=== PATIENT | male | born 1930 | race Caucasian/White ===

== ENCOUNTER 2017-07-20 15:43 | Emergency (ER) | payer OTHER ==
[~2017-07-20] VITALS: Ht 180.3 cm; Wt 83.5 kg
[~2017-07-20 15:43] MED LIST: ADULT LOW DOSE81 MG PO; CARVEDILOL12.5 MG PO; CARVEDILOL6.25 MG PO; CENTRUM COMPLE1 EACH PO; CO Q-10100 MG PO; COENZYME Q1050 M1; CRESTOR10 MG PO; CRESTOR5 MG PO; IMDUR 30 MG TAB30 M1 PO; LEVOTHROID75 MCG PO; LISINOPRIL10 MG PO; LISINOPRIL5 MG PO; MULTI VITAMIN1 EACH; MULTIVITAMINS PO; NITROGLYCERIN0.4 MG SL; NITROQUICK0.4 MG SL; OMEPRAZOLE20 MG PO; PLAVIX 75 MG TA75 MG PO; PRILOSEC 20 MG20 MG; PROTONIX40 M2 PO; SM FISH OIL 1,1 EACH PO; thyroxine
[2017-07-20 16:17] LABS: ABSOLUTE BASOPHILS 0.2 thou/uL (0.0-0.2); ABSOLUTE EOSINOPHILS 0.2 thou/uL (0.0-0.7); ABSOLUTE LYMPHOCYTES 0.8 thou/uL (0.8-5.3); ABSOLUTE MONOCYTES 1.1 thou/uL (0.0-1.2); ABSOLUTE NEUTROPHILS 4.6 thou/uL (1.6-8.1); BASOPHILS 2.6 %; EOSINOPHILS 3.1 %; HEMATOCRIT 38.9 % (42.0-52.0); HEMOGLOBIN 13.4 gm/dL (14.0-18.0); LYMPHOCYTES 11.3 %; MCH 31.7 pg (26.0-34.0); MCHC 34.4 g/dL (28.0-37.0); MONOCYTES 16.3 %; MPV 7.5 fl. (7.2-11.1); NUCLEATED RBCS 0 /100WBC; PLATELET COUNT* 136 thou/uL (150-400); POLYS 66.7 %; RBC 4.22 mil/uL (4.50-6.00); RDW-CV 13.2 % (10.5-14.5)
[2017-07-20 16:37] LABS: INFLUENZA A ANTIGEN None Detected (None Detect); INFLUENZA B ANTIGEN None Detected (None Detect)
[2017-07-20 16:41] LABS: ANION GAP 7 mmol/L (7-16); BUN 19 mg/dL (7-18); CALCIUM 8.8 mg/dL (8.5-10.1); CHLORIDE 99 mmol/L (98-107); CO2 30 mmol/L (21-32); CREATININE 1.5 mg/dL (0.6-1.3); GLUCOSE 136 mg/dL (70-99); POTASSIUM 4.3 mmol/L (3.5-5.1); SODIUM 136 mmol/L (136-145)
[2017-07-20 16:46] LABS: ALBUMIN 3.8 g/dL (3.4-5.0); ALKALINE PHOSPHATASE 61 U/L (46-116); SGOT 26 U/L (15-37); SGPT 21 U/L (30-65); TOTAL BILIRUBIN 0.7 mg/dL (<0.1-1.0); TOTAL PROTEIN 6.9 g/dL (6.4-8.2); TROPONIN-I LEVEL <0.06 ng/mL (<0.06)
[2017-07-20] MEDS ORDERED: ZPAK PO (17:37)
[2017-07-20] MEDS ORDERED: ZOFRAN ODT4 MG PO (17:37)
[2017-07-20] MEDS ORDERED: ACETAMINOPHEN-1 EAC1 PO (17:37)
[2017-07-20 17:42] LABS: URINE BILIRUBIN NEGATIVE (Negative); URINE BLOOD NEGATIVE (Negative); URINE CLARITY CLEAR; URINE COLOR DARK YELLOW; URINE GLUCOSE-RANDOM NEGATIVE (Negative); URINE KETONES NEGATIVE (Negative); URINE LEUKOCYTES-REFLEX NEGATIVE (Negative); URINE NITRITE-REFLEX NEGATIVE (Negative); URINE PROTEIN NEGATIVE (Negative); URINE UROBILINOGEN 0.2 E.U./dl (0.2-1.0)
[2017-07-20 17:50] VITALS: BP 123/66
--- NOTE | 2017-07-21 16:27 | EKG ---
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 07/21/17 1626 155 155 Kashmir Bellamy MD, FACC /EPI
== END 2017-07-20 17:51 | disposition home or self-care (01) ==
LOC: M.ERS 15:43
PROVIDERS: Physician Assistant
DX: J20.9 Acute bronchitis, unspecified (principal); I25.119 Atherosclerotic heart disease of native coronary artery with unspecified angina pectoris; I10 Essential (primary) hypertension; Z95.5 Presence of coronary angioplasty implant and graft; Z98.890 Other specified postprocedural states

== ENCOUNTER 2018-02-14 09:55 | Inpatient (IN) | payer OTHER ==
[~2018-02-14] VITALS: Ht 172.7 cm; Wt 85.7 kg
[~2018-02-14 09:55] MED LIST changes: +ACETAMINOPHEN-1 EAC1 PO; +ZOFRAN ODT4 MG PO; +ZPAK PO
[2018-02-14 10:07] VITALS: BP 140/86
[2018-02-14] MEDS ORDERED: ARICEPT 5 MG TAB5 MG PO ×2 (10:12→14:21)
[2018-02-14] MEDS ORDERED: RED YEAST RICE600 MG PO (10:13)
[2018-02-14 10:29] LABS: ABSOLUTE BASOPHILS 0.2 thou/uL (0.0-0.2); ABSOLUTE EOSINOPHILS 0.1 thou/uL (0.0-0.7); ABSOLUTE LYMPHOCYTES 1.1 thou/uL (0.8-5.3); ABSOLUTE MONOCYTES 0.6 thou/uL (0.0-1.2); ABSOLUTE NEUTROPHILS 5.9 thou/uL (1.6-8.1); BASOPHILS 2.6 %; EOSINOPHILS 1.4 %; HEMATOCRIT 42.5 % (42.0-52.0); HEMOGLOBIN 14.7 gm/dL (14.0-18.0); LYMPHOCYTES 14.3 %; MCH 31.6 pg (26.0-34.0); MCHC 34.6 g/dL (28.0-37.0); MCV 91.5 fL (80.0-100.0); MONOCYTES 7.6 %; MPV 7.6 fl. (7.2-11.1); NUCLEATED RBCS 0 /100WBC; PLATELET COUNT* 171 thou/uL (150-400); POLYS 74.1 %; RBC 4.64 mil/uL (4.50-6.00); RDW-CV 13.2 % (10.5-14.5); WBC 7.9 thou/uL (4.0-11.0)
[2018-02-14 10:45] LABS: ANION GAP 5 mmol/L (7-16); BUN 14 mg/dL (7-18); CALCIUM 9.3 mg/dL (8.5-10.1); CHLORIDE 96 mmol/L (98-107); CO2 31 mmol/L (21-32); CREATININE 0.9 mg/dL (0.6-1.3); GLUCOSE 140 mg/dL (70-99); POTASSIUM 4.4 mmol/L (3.5-5.1); SODIUM 132 mmol/L (136-145)
[2018-02-14 10:49] LABS: ALBUMIN 4.2 g/dL (3.4-5.0); ALKALINE PHOSPHATASE 54 U/L (46-116); MAGNESIUM 1.9 mg/dL (1.8-2.4); SGOT 22 U/L (15-37); SGPT 16 U/L (30-65); TOTAL BILIRUBIN 0.7 mg/dL (<0.1-1.0); TOTAL PROTEIN 7.4 g/dL (6.4-8.2); TROPONIN-I LEVEL <0.06 ng/mL (<0.06)
[2018-02-14 12:05] LABS: URINE BILIRUBIN NEGATIVE (Negative); URINE BLOOD NEGATIVE (Negative); URINE CLARITY CLEAR; URINE COLOR YELLOW; URINE GLUCOSE-RANDOM NEGATIVE (Negative); URINE KETONES NEGATIVE (Negative); URINE LEUKOCYTES-REFLEX NEGATIVE (Negative); URINE NITRITE-REFLEX NEGATIVE (Negative); URINE PROTEIN NEGATIVE (Negative); URINE UROBILINOGEN 0.2 E.U./dl (0.2-1.0)
[2018-02-14 12:51] LABS: APTT 25.4 Seconds (25.0-31.3); INR 1.1; PROTIME 10.4 Seconds (9.20-11.50)
[2018-02-14 13:11] VITALS: BP 142/84
[2018-02-14 13:35] VITALS: BP 154/97
[2018-02-14 15:36] VITALS: BP 121/71
--- NOTE | 2018-02-14 16:33 | NUR ---
PT ARRIVED TO ROOM 215 AT APPROX 1330 FROM THE ER. PT ORINETED TO ROOM AND STAFF. PT IS ALERT AND ORIENTED X3, SLOW TO ANSWER QUESTIONS AND IS FORGETFUL. DAUGHTER AT BEDSIDE, HELPING PT ANSWER ADMISSION QUESTIONS. REVIEWED HOME MEDS WITH PT. ADMISSION HX AND ASSESMENT DONE CHARTED. REVIEWED FALL PRECAUTIONS WITH PT, HE NEEDS REENFORCEMENT. WILL CONTINUE WITH PLAN OF CARE.
[2018-02-14 20:00] VITALS: BP 141/75
[2018-02-15] VITALS (16 sets, daily range): BP systolic 115–173; BP diastolic 67–119
[2018-02-15 03:18] LABS: HEMATOCRIT 36.2 % (42.0-52.0); HEMOGLOBIN 12.7 gm/dL (14.0-18.0); MCH 31.8 pg (26.0-34.0); MCV 91.1 fL (80.0-100.0); MPV 7.8 fl. (7.2-11.1); RBC 3.98 mil/uL (4.50-6.00); RDW-CV 13.4 % (10.5-14.5); WBC 9.9 thou/uL (4.0-11.0)
[2018-02-15 03:23] LABS: CALCIUM 8.3 mg/dL (8.5-10.1); CREATININE 0.8 mg/dL (0.6-1.3); MAGNESIUM 1.7 mg/dL (1.8-2.4); POTASSIUM 3.9 mmol/L (3.5-5.1)
--- NOTE | 2018-02-15 05:13 | NUR ---
AT ABOUT 0248 PT BECAME BRADYCARDIA IN THE 30'S AND THEN HAD ABOUT A 30 SECOND EPISODE OF ASYSTOLE. COMPRESSIONS WAS STARTED ON PT. AFTER A FEW SECONDS OF COMPRESSIONS PT HAD A PULSE AND BECAME ALERT. JEROME OCONNELL WAS CALLED BUT NO INTERVENTIONS EXCEPT COMPRESSIONS WHERE DONE. DR VELASQUEZ NOTIFIED AND CARDIOLOGY CONSULT WAS DONE. PT BEING MONITORED AT THIS TIME.,
--- NOTE | 2018-02-15 05:39 | NUR ---
PT RESTING AT THIS TIME, SINUS RHYTHM ON SPORTS MEDICINE COORDINATOR WITH HR 60'S-70'S. DENIES PAIN, FALL PRECAUTIONS IN PLACE. CARDIAC CONSULT FOR AM PENDING.
--- NOTE | 2018-02-15 09:45 | NUR ---
ASSUMED PT CARE AT 0730, FULL ASSESMENT DONE CHARTED. PT A/O X3, FORGETFUL, PLEASANT. DENIES PAIN BUT STATES HE IS"SICK TO MY STOMACH". PT GIVEN ZOFRAN. PT SR ON THE MONITOR. VSS, UP TO BATHROOM WITH ASSISTANCE SEVERAL TIMES THIS AM. NPO FOR CARDIOLOGY CONSULT. FALL PRECAUTIONS IN PLACE. CALL LIGHT IN REACH. PT NEEDS REENFORCEMENT TO CALL FOR HELP. WILL CONTINUE TO MONITOR.
--- NOTE | 2018-02-15 11:52 | NUR ---
PT TAKEN TO SKIDDER RUNNER FOR TEMPORARY PACEMAKER PLACEMENT AT APPROX 1105, FAMILY NOTIFIED, SON ARRIVED AND TAKEN TO ICU WAITING ROOM
--- NOTE | 2018-02-15 12:19 | NUR ---
REPORT GIVEN TO MARCELINO IN ICU
--- NOTE | 2018-02-15 12:25 | EKG ---
[place] [address] ELECTROCARDIOGRAM REPORT Name: KING KAUFFMANBY Ann Room: [address] ADM IN M.R.#: [id number] Admission: 02/14/18 Attend Phys: Ankit Armendariz, Discharge: Date of : 30 Report #: [id number] THIS REPORT FOR: //name// [facility] ED Test Date: 2018-02-14 Test Time: 10:15:52 Pat Name: HUGO KAUFFMAN Department: Room: [facility] Gender: M Core Filer: Melinda REBOLLEDO : 1930 Requested By: Mena Cervantes Order Number: [id number] MD: Neeraj Hernandez Measurements Intervals [place] Rate: 75 P: 64 TN: 210 QRS: -25 QRSD: 95 T: 55 QT: 416 QTc: 465 Interpretive Statements Sinus rhythm Borderline left axis deviation Low voltage, precordial leads Abnormal R-wave progression, early transition Compared to ECG 07/20/2017 15:51:55 no change Electronically Signed On 02-15-2018 12:24:44 CDT by Neeraj Hernandez [email or web address] <ELECTRONICALLY SIGNED> By: Neeraj Hernandez MD, [facility] 02/15/18 1224 1015 1015 Neeraj Hernandez MD, [facility] /EPI
--- NOTE | 2018-02-15 12:37 | EKG ---
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: [facility] : 1930 Requested By: Ankit Armendariz Order Number: [id number] Hesham MD: Neeraj Hernandez Measurements Intervals [place] Rate: 71 P: 43 AK: 222 QRS: -26 QRSD: 90 T: 56 QT: 442 QTc: 481 Interpretive Statements Sinus rhythm Prolonged AK interval Borderline left axis deviation Minimal ST elevation, anterior leads Electronically Signed On 02-15-2018 12:36:59 CDT by Neeraj Hernandez [email or web address] <ELECTRONICALLY SIGNED> By: Neeraj Hernandez MD, [facility] 02/15/18 1236 309 8 Neeraj Hernandez MD, FACC /EPI
--- NOTE | 2018-02-15 12:50 | NUR ---
PT TRANSERRED TO ICU ROOM 7 AROUND 1210 FROM MANAGER BILINGUAL. PT WAS PREVIOUSLY A TELE PATIENT, REPORT RECEIVED FROM TELE NURSE. TEMPORARY PACEMAKER TO RT GROIN. ANTICIPATE PLACEMENT OF PERMANENT PACEMAKER TOMORROW. FAMILY AT BEDSIDE. NO OTHER CONCERNS AT THIS TIME. CLWR. WCTM.
--- NOTE | 2018-02-15 13:05 | CARD ---
[address] [address] CARDIAC CATH REPORT Name: HUGO KAUFFMAN Room: [address] IN .R.#: [id number] Admission: 02/14/18 Attend Phys: Ankit Armendariz, Discharge: Date of : 30 Report #: [id number] THIS REPORT FOR: //name// APPROVED REPORT Study performed: 02/15/2018 10:47:49 Patient Status: In-Patient Room #: 214 Event Personnel: Ita Younger RN Canning Machine Operator, Adina Reeves, Kisha Larsen Blick, David Space Officer Exam: Insertion of Temporary Pacemaker Insertion Indications: Complete Heart Block The patient is a 87 year-old male with a history of Complete Heart Block. Conscious Sedation No sedation given Electrode Parameters Ventricular Threshold: 0.5 ma Complications The patient tolerated the procedure well and there were no complications associated with the procedure. Findings Specimens Removed: No Estimated Blood Loss: 5 6 divehi sheath was placed in the right femoral vein. 5 divehi pacing lead was inserted through the sheath and guided under fluoroscopy to the right ventricular apex. The sheath was sutured in place Conclusion successful placement of a temporary pacing lead Recommendations permanent dual chamber pacemaker <ELECTRONICALLY SIGNED> By: Neeraj Hernandez MD, [facility] 02/15/18 1305 1305 1305Neeraj Hernandez MD, FACC /INF
--- NOTE | 2018-02-15 15:46 | NUR ---
PT PROGRESSING TOWARDS GOALS THIS SHIFT. TEMPORARY PACEMAKER TO RT GROIN ACCESS SITE. PT SOMEWHAT NONCOMPLIANT WITH KEEPING RLE STRAIGHT, RLE SOFT RESTRAINT APPLIED TO REMIND PT. VSS. TELE SR. NO OTHER CONCERNS AT THIS TIME. CLWR. WCTM.
--- NOTE | 2018-02-15 18:16 | NUR ---
PATIENT STATING HE IS SHORT OF AIR. SLIGHTLY MORE TACHYCARDIC WITH RATE 100-110S. O2 SAT REMAINS >90%. TEMPERATURE 97.6. DR MCCANN PAGEGirish, ONETIME DOSE OF 40 MG IV LASIX GIVEN. STAT CHEST XRAY, BEING COMPLETED NOW. DR MATOS PAGEGirish TO BE MADE AWARE, AWAITING CALL BACK.
[2018-02-16] VITALS (12 sets, daily range): BP systolic 82–138; BP diastolic 52–86
[2018-02-16 04:32] LABS: HEMATOCRIT 38.6 % (42.0-52.0); HEMOGLOBIN 13.5 gm/dL (14.0-18.0); MCH 31.6 pg (26.0-34.0); MCV 90.1 fL (80.0-100.0); MPV 7.7 fl. (7.2-11.1); RBC 4.28 mil/uL (4.50-6.00); RDW-CV 13.6 % (10.5-14.5); WBC 12.6 thou/uL (4.0-11.0)
[2018-02-16 04:47] LABS: AMYLASE 24 U/L (25-115); ANION GAP 4 mmol/L (7-16); BUN 10 mg/dL (7-18); CALCIUM 8.5 mg/dL (8.5-10.1); CHLORIDE 96 mmol/L (98-107); CHOLESTEROL 234 mg/dL (<200); CO2 31 mmol/L (21-32); GLUCOSE 136 mg/dL (70-99); HDL CHOLESTEROL 60 mg/dL (>40); LDL CHOLESTEROL 158 mg/dL (<100); LIPASE 46 U/L (73-393); MAGNESIUM 1.6 mg/dL (1.8-2.4); POTASSIUM 3.5 mmol/L (3.5-5.1); SODIUM 131 mmol/L (136-145); TC:HDL 3.9 Ratio (Not establshd); TRIGLYCERIDE 83 mg/dL (<150); VLDL 17 mg/dL (<40)
[2018-02-16 04:56] LABS: SERUM ASSESSMENT CLEAR
--- NOTE | 2018-02-16 05:24 | NUR ---
ASSUMED PT CARE AT 1930, PT IS AWAKE AND ALERT TO SELF, OCCASIONALLY PLACE. PT DENIES ANY PAIN OR NEEDS AT THIS TIME. PT TRACING ST ON THE MONITOR, TEMPORARY PACEMAKER IN PLACE. PT STARTED OUT ON 6L NC AT THE START OF SHIFT. RT HAS WEANED PT DOWN TO 2L NC. PT RIGHT LEG IS RESTRAINED FOR IMMOBILIZATION FOR THE TEMP PACER TO RIGHT GROIN. AROUND 0500 PATIENT BECAME MORE RESTLESS AND HAD PULLED THE BOTTOM HALF OF THE DRESSING COVERING TEMPORARY PACEMAKER SITE. THIS RN REDRESSED SITE. AFTER NEW DRESSING WAS APPLIED PT'S HEART RATE INCREASED. PT WILL JUMP FROM 110'S TO 150'S. DR. MATOS NOTIFIED, STATED TO ADD REENFORCEMENT AND LOCATION TAPE AND HE WILL BE IN TO SEE THE PATIENT THIS AM. BED IN LOW POSITION, CALL LIGHT IN REACH, BED ALARM ON, YELLLOW ARM BAND AND SOCKS IN PLACE.
--- NOTE | 2018-02-16 10:10 | NUR ---
PT TO STRONG NITRIC OPERATOR PER BED AND SURGERY STAFF FOR PACEMAKER PLACEMENT. CONSENT SIGNED BY PT. PT VERBALIZED UNDERSTANDING OF PROCEDURE. DAUGHTER AT BEDSIDE.
--- NOTE | 2018-02-16 13:20 | NUR ---
PT BACK FROM PROMOTIONS SPECIALIST. PACEMAKER PLACED. SURGICAL SITE TO L CHEST C/D/I. NO DRESSING. SLING PLACED TO LUE. CLEAR DRESSING TO R GROIN WHERE TEMP PACEMAKER WAS REMOVED. AREA SOFT TO TOUCH WITH NO HEMATOMA OR BRUISING.
--- NOTE | 2018-02-16 16:00 | NUR ---
SPOKE WITH PT AND DAUGHTER. PT LIVES ALONE, DTR LIVES NEARBY AND CHECKS ON HIM OFTEN. DTR WORKS NIGHTS, SHE HAS TO GO BACK INTO WORK FRIDAY NIGHT. DTR WORRIED ABOUT PT BEING HOME ALONE. SHE SAID HE HAS SOME CONFUSION AT HOME BUT HAS BEEN OKAY TO BE HOME ALONE, HE HAS BEEN SLIGHTLY MORE CONFUSED SINCE HE HAS BEEN HERE IN THE HOSPITAL. WILL SEE HOW PT DOES AFTER HE IS OFF BEDREST FROM HIS PACEMAKER INSERTION THIS AFTERNOON. PT NOW TELE STATUS. CASE MGT WILL FOLLOW UP TOMORROW.
--- NOTE | 2018-02-16 17:00 | CARD ---
[address] [address] CARDIAC CATH REPORT Name: HUGO KAUFFMAN Room: [address] IN [facility]#: [id number] Admission: 02/14/18 Attend Phys: Ankit Armendariz, Discharge: Date of : 30 Report #: [id number] THIS REPORT FOR: //name// APPROVED REPORT Study performed: 02/16/2018 09:38:00 Patient Status: In-Patient Room #: ICU 7 Exam: Insertion of Dual Chamber Permanent Pacemaker Indications: Complete Heart Block The patient is a 87 year-old male with a history of Complete Heart Block. Patient Info Antiplatelet Therapy: plavix Conscious Sedation All Sedation medications were managed by Anesthesia. Implanted Devices: dual chamber pacemaker and leads Procedure The patient underwent informed consent. We discussed the details of the procedure including the risks, which include, but not limited to bleeding, infection, vascular damage, cardiac perforation, and pneumothorax. He understood these risks and was willing to proceed. As such, he was brought to the EP/Cardiac Catheterization laboratory in a fasting and sedated state and prepped and draped in a sterile fashion, received IV antibiotics prior to initiation of the procedure and a venogram was performed showing patency of the left axillary vein. The patient underwent MAC anesthesia, with no anesthesia related complications. The patient was brought to the EP/Cardiac Catheterization laboratory and the left chest and shoulder were prepped and draped in a sterile manner. During this case, Fluoroscopy and visipaque 10cc were used for imaging. The left subclavian region was infiltrated with 2% Lidocaine subcutaneous anesthesia. A transverse incision was made in the left upper chest cavity. The subcutaneous pocket was formed via blunt dissection. Percutaneous venous access was achieved and an introducer sheath was inserted into [place] [address] CARDIAC CATH REPORT Name: HUGO KAUFFMAN Room: [address] IN [facility]#: [id number] Admission: 02/14/18 Attend Phys: Ankit Armendariz, Discharge: Date of : 30 Report #: [id number] Sheaths were positions using the modified Seldinger technique Through the introducer sheaths the atrial and ventricular lead wires were positioned in the right atrial appendage and right ventricular apex respectively. Utilizing fluoroscopic guidance, the atrial and ventricular lead wires were advanced over the wires and positioned in the right atria and right ventricle respectively. Capturing and sensing thresholds were verified. Patient was noted to have episodes of atrial fibrillation. Patient was given 2 boluses of IV amiodarone. Electrode Parameters P Wave: 2.0 mv R Wave: 10 mv Atrial Threshold: 0.6v @ 0.4 ms Ventricular Threshold: 0.9 v @ 0.4 ms Atrial Resistance: 475 ohm Ventricular Resistance: 700 ohm Dual Chamber The atrial and ventricular leads were then secured using 0 silk sutures. The subcutaneous pocket was irrigated with ancef antibiotic solution.The atrial and ventricular leads were attached to the appropriate receptacles on the pulse generator and set screws firmly tightened to insure adequate contact and stability. The lead and pulse generator were placed into the subcutaneous pocket. Sharp and sponge counts were confirmed to be correct. At this time the pocket was closed subcutaneously with a 0 Vicryl and the skin was closed with a 4.0 Vicryl. The operative site was dressed in sterile fashion with skin affix and the patient was transferred to the floor in stable condition. Complications The patient tolerated the procedure well and there were no complications associated with the procedure. D-Stat Flowable hemostasis agent was used in the left chest to avoid complications of any bleeding. Temporary Pacemaker was removed under flouroscopic guidance and manual pressure held x 10 min and hemostasis achieved. No hematoma associated with this. Findings Specimens Removed: No Estimated Blood Loss: 10 cc Conclusion 1. patient was given 2 boluses of [place] [address] CARDIAC CATH REPORT Name: HUGO KAUFFMAN Room: [address] IN [facility]#: [id number] Admission: 02/14/18 Attend Phys: Ankit Armendariz, Discharge: Date of : 30 Report #: [id number] fibrillation 2. successful placement of a dual chamber pacemaker and leads <ELECTRONICALLY SIGNED> By: Neeraj Hernandez MD, FACC 02/16/18 1659 1659 1659Dacholo Hernandez MD, [facility] /INF
--- NOTE | 2018-02-16 17:45 | NUR ---
PT WITH SOFT WRIST RESTRAINT TO LUE PER ORDER. PT REMOVING SLING AND REPEATEDLY RAISING HIS ARM ABOVE HIS HEAD WHICH IS CONTRAINICATED WITH PACEMAKER PLACEMENT. DAUGHTER AND SON AT BEDSIDE. PROGRESSING TOWARDS GOALS. PRN PAIN MEDICATION GIVEN PER PT REQUEST.
[2018-02-17] VITALS (10 sets, daily range): BP systolic 89–135; BP diastolic 49–78
--- NOTE | 2018-02-17 03:22 | NUR ---
ASSUMED CARE OF PATIENT AT 1900. AT SHIFT CHANGE, HEART RATE BEGAN TO INCREASE, SUSTAINING IN 140'S. DR SERRANO NOTIFIED. ORDERS FOR 500 ML NS BOLUS OBTAINED AND INFUSED. HEART RATE NOW WITHIN NORMAL LIMITS. BECOMES FORGETFUL AT NIGHT, BUT FOLLOWS COMMANDS AND ABLE TO BE RE-ORIENTED. PROGRESSING TOWARDS POC GOALS.
--- NOTE | 2018-02-17 11:09 | EKG ---
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: : 1930 Requested By: Demond Foss Order Number: [id number] Hesham MD: Gregory Ly Measurements Intervals [place] Rate: 111 P: 0 NC: 90 QRS: 268 QRSD: 139 T: 83 QT: 405 QTc: 551 Interpretive Statements A-V dual-paced complexes w/ some inhibition No further analysis attempted due to paced rhythm Compared to ECG 02/15/2018 03:09:11 Sinus rhythm no longer present First degree AV block no longer present ST (T wave) deviation no longer present Electronically Signed On 02-17-2018 11:09:44 CDT by Gregory Ly [email or web address] <ELECTRONICALLY SIGNED> By: Gregory Ly MD, FACC 02/17/18 1109 1 1 Gregory Ly MD, FAC /EPI
--- NOTE | 2018-02-17 11:15 | CON ---
[address] [address] CONSULTATION Name: HUGO KAUFFMAN Room: [address] IN .R.#: [id number] Admission: 02/14/18 Attend Phys: Ankit Armendariz, Discharge: Date of : 30 Report #: [id number] THIS REPORT FOR: //name// CC: Bulmaro Armendariz DATE OF SERVICE: 02/15/2018 TYPE OF REPORT: Cardiology consultation. HISTORY OF PRESENT ILLNESS: The patient is an 87-year-old single white male who I was asked to see in the hospital today after he had an episode of complete heart block. The patient has an extensive past medical history. He presented in 2007 with chest pain, is found to have a stenosis in the ostium of the second diagonal branch of the LAD. I performed balloon angioplasty but did not place a stent because of small size of the vessel in ostial location. He then presented in 2009 with chest pain. I performed a repeat cardiac catheterization in 2009. This showed normal left ventricular function. The second diagonal branch had no restenosis. The right coronary artery, however, was found to have a 70% stenosis. I placed a single bare metal stent in the right coronary artery. He was placed on Plavix. He has actually done fairly well since that time. He was last admitted here to [place] [facility] in 2012 with atypical chest pain. He was seen by my partner, Dr. Payne at that time. Nuclear stress test in 2012 showed diaphragmatic attenuation. Ejection fraction 59%, but no evidence of ischemia. He continues to see me in the cardiology clinic. He is not very active because of his age. However, recently he has not felt very well. He has had some nausea and abdominal discomfort. He has felt weak. He denies any diarrhea or vomiting. He came to the Emergency Room and was admitted yesterday. On the monitor, the patient was in sinus rhythm. However, last night, the patient had an episode of 2:1 AV block. He then developed complete heart block with a long pause lasting several seconds with P waves that were not conducted consistent with complete heart block. Code blue was activated. The patient had brief CPR. He regained sinus rhythm. I was asked to see him today for further evaluation and treatment. He denies any recent chest pain, shortness of breath, palpitations, lightheadedness, syncope, falls or edema. PAST MEDICAL HISTORY: Otherwise significant for cataract extraction, hypertension and hyperlipidemia. MEDICATIONS: Consist of Aricept for memory loss, Red yeast rice for hyperlipidemia, carvedilol, clopidogrel, Synthroid, lisinopril and Protonix. He is no longer on Crestor. ALLERGIES: He has no [place] [address] CONSULTATION Name: HUGO KAUFFMAN Room: [address] IN ..#: [id number] Admission: 02/14/18 Attend Phys: Ankit Armendariz, Discharge: Date of : 30 Report #: [id number] FAMILY HISTORY: Negative for heart disease. SOCIAL HISTORY: He is , lives by himself. He quit smoking in the past. No alcohol abuse. 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 His daughter actually is a tech in the lab here at [facility] and works night shifts. REVIEW OF SYSTEMS: He has had no history of stroke, asthma, peptic ulcer disease, liver disease, kidney disease, psychiatric illness or chronic skin condition. PHYSICAL EXAMINATION: GENERAL: Revealed an elderly slow moving male who appeared in no acute distress. VITAL SIGNS: He had a blood pressure of 140/70, pulse is 70 and he is afebrile. HEENT: He is anicteric. Conjunctivae pink. Mucous members moist. NECK: Veins nondistended. No carotid bruits. CHEST: Clear to auscultation. CARDIOVASCULAR: Regular rate and rhythm. ABDOMEN: Soft and nontender. EXTREMITIES: Had no edema. Posterior tibial pulse 1+ bilaterally. SKIN: Cool and dry. NEUROLOGICAL: He is very slow moving. RADIOLOGICAL DATA: His ECG on admission showed a sinus rhythm with early transition but no ST or T-wave change. Workup in the Emergency Room, he had a portable chest x-ray that showed perihilar infiltrates, small left effusion. CT scan of the abdomen and pelvis with contrast showed no acute abnormality and a right renal cyst. LABORATORY DATA: His lab work, sodium 133, creatinine 0.8 and glucose 118. Liver function studies were normal. Troponin 0.06. BNP 1491. White blood cell count 9.9 and hemoglobin 12.7. IMPRESSION AND RECOMMENDATIONS: 1. Complete heart block. I would stop beta carri. Check thyroid function studies. I would recommend temporary pacer and proceed with permanent pacemaker tomorrow. 2. Abdominal discomfort. No evidence of acute abdomen. 3. Hypertension. The patient has been on a beta carri and angiotensin-converting enzyme inhibitor. 4. Hyperlipidemia. The patient cannot tolerate statin drugs. [address] [address] CONSULTATION Name: HUGO KAUFFMAN Room: [address] IN [place].#: [id number] Admission: 02/14/18 Attend Phys: Ankit Armendariz, Discharge: Date of : 30 Report #: [id number] 5. Coronary artery disease. Previous stent. I would continue aspirin, but I do not believe the patient needs to take any more Plavix. <ELECTRONICALLY SIGNED> By: Neeraj Hernandez MD, FACC 02/17/18 1115 1026 2330Neeraj Hernandez MD, FACC /nt
--- NOTE | 2018-02-17 14:28 | NUR ---
ICU ROUNDING: CM SPOKE TO THE RN IN-CHARGE OF THE PATIENT AND SHE INFORMS THAT THE PATIENT IS NOW TELE STAUS. RN INFORMS THAT THE PATIENT'S DTR REQUEST TO SPEAK TO CM TO DISCUSS HH WITH NURSING AT D/C. CM SPOKE TO PATIENT'S DTR AND UPON FURTHER DISCUSSION DECIDED THAT THE PATIENT MAY NEED SKILLED AT D/C. PATIENT'S DTR INFORMS THAT SHE WOULD LIKE FOR HER FATHER 'TO GO TO [facility] HER MOTHER USED TO WORK THERE'. EMMANUEL SPOKE TO DR LOPEZ TO INFORM OF THIS AND HE IS IN AGREEMENT AND WILL ORDER PT/OT TO ASSESS NEED FOR SKILLED AT D/C. CM TO SEND SKILLED REFERRAL WHEN PT/OT NOTES ARE AVAILABLE. CM WILL REMAIN AVIALABLE TO ASSIST AND FOLLOW NEEDED.
--- NOTE | 2018-02-17 14:45 | NUR ---
PT ARRIVED ON THE FLOOR FROM ICU. REPORT TAKEN FROM JOSE JUAN WU. READ AND AGREE WITH HER ASSESSMENT. PTS VITALS WNL. PT IS AFEBRILE. PT ON CARDIAC MONITER TRACING IRREGULAR RATE V-PACED WITH UNDERLYING AFIB HR 109. PT HAS A PACEMAKER READER AT BEDSIDE. PT IS UNSTEADY AND ON FALL PRECAUTIONS PER FACILITY PROTOCOL. BED IN LOW POSITION CALL LIGHT IS IN REACH. WM.
--- NOTE | 2018-02-17 14:48 | NUR ---
REPORT GIVEN TO TELEMETRY NURSE. PT TRANSFERED TO ROOM 207 VIA WHEELCHAIR WITHOUT DIFFICULTY. ASSESSMENT CHARTED. VSS AT THIS TIME. PT IN AFIB WITH RVR THIS MORNING TREATED WITH AMIODARONE AND DIGOXIN PER CARDIOLOGY. HR STABLE NOW AT 98 BUT PATIENT IS STILL IN AFIB. NO COMPLAINTS OF PAIN. PACEMAKER SITE IS C,D &I. THERE IS SOME BRUISING SURROUNDING INCISION SITE. PT UP TO CHAIR FOR LUNCH. HE IS VERY UNSTEADY ON HIS FEET. CASE MANAGEMENT NOTIFIED THAT FAMILY WANTED TO TALK TO PATIENT REGARDING HAVING SOME HHC. PT/OT ORDERS RECEIVED.
--- NOTE | 2018-02-17 18:09 | NUR ---
PT IS RESTING IN ROOM WITH FAMILY AT BEDSIDE. EDUCATION GIVEN ON DEMAND. HOURLY ROUNDING COMPLETE. PT C/O OF PAIN AT PACEMAKE SITE. IBP GIVEN AND WAS EFFECTIVE.
[2018-02-18] VITALS: BP 141/93
[2018-02-18 04:00] VITALS: BP 124/82
--- NOTE | 2018-02-18 06:36 | NUR ---
PATIENT RESTING IN BED MOST OF NIGHT. USES URINAL. DENIES COMPLAINTS OF PAIN, DISCOMFORT. ASSIST WITH TURNING IN BED EVERY 2 HOURS. BED IN LOW POSITION, CALL LIGHT IN REACH. NO SIGN OF DISTRESS AT THIS TIME.
[2018-02-18 07:59] VITALS: BP 121/78; BP 134/87
--- NOTE | 2018-02-18 10:03 | NUR ---
ASSUMED CARE OF PT THIS AM AROUND 07- CARD STRIPPER IN PLACE ORDERED, TRACING V-PACED WITH UNDERLYING A-FIB- UPON ASSESSMENT PT NOTED TO BE RESTING IN BED WITH EYES CLOSED, BUT ARROUSABLE- PT A&O X 3 WITH OCCASSIONAL FORGETFULLNESS NOTED- CONTINENT OF BOWEL AND BLADDER- SBA WITH TRANSFERS- EXPIRATORY WHEEZING NOTED- RESP EVEN AND UN-LABORED AT REST, DYSPNEA NOTED ON EXERTION- VSS, O2 SAT 94% ON RA- ABDOMEN SOFT/ROUND/NON-TENDER, BS X4 QUADS- PT REPORTS NO BM IN 1 WEEK- NEW ORDERS NOTED AND GIVEN THIS AM PRESCIBED FOR LACTULOSE- IV NOTED TO RIGHT AC INTACT AND SL- IV ABT GIVEN THIS AM PRESCIBED- NEW ORDERS RECIEVED PER THIS AM FOR IV LASIX 40MG X1, AMMIO IV X1, XARELTO 20MG DAILY AND GIVEN THIS AM PRESCIBED- ECHO ORDERED AND EKG IN AM- IF PT UNABLE TO CONVERT TO SR TODAY, POSSIBLE CARDIOVERSION PLANNED IN AM PER CARDIOLOGY- PT UP TO CHAIR THIS AM WITH BREAKFAST, TOLERATING WELL, GOOD PO INTAKE NOTED- LEFT CHEST INCISSION R/T PACE MAKER PLACEMENT C/D/I, NO DRAINAGE NOTED, AREA WITH SLIGHT SWELLING AND NOTED BRUISING WELL APPROXIMATED WITH GLUE- PT REPORTS DISCOMFORT TO SIGHT, BUT NOT PAINFUL- CALL LIGHT AND PERSONAL BELONGINGS WITH IN REACH- BED/CHAIR ALARMS IN PLACE R/T SAFETY/NEEDS- HOURLY ROUNDS IN PLACE R/T SAFETY/NEEDS- ALL NEEDS MET AT THIS TIME-[facility]
--- NOTE | 2018-02-18 10:27 | NUR ---
Faxed initial referral to Mily at [facility]. Dragan willett in a few days. Following.
[2018-02-18 11:56] VITALS: BP 124/84
--- NOTE | 2018-02-18 12:05 | EKG ---
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: : 1930 Requested By: Neeraj Hernandez Order Number: [id number] Reading MD: Neeraj Hernandez Measurements Intervals [place] Rate: 99 P: [place]: QRS: -45 QRSD: 174 T: 64 QT: 386 QTc: 496 Interpretive Statements Afib/flut and V-paced complexes No further analysis attempted due to paced rhythm Baseline wander in lead(s) V1 Compared to ECG 02/17/2018 08:22:11 rate slowed Electronically Signed On 02-18-2018 12:05:41 CDT by Neeraj Hernandez [email or web address] <ELECTRONICALLY SIGNED> By: Neeraj Hernandez MD, FACC 02/18/18 1205 0828 0828 Neeraj Hernandez MD, [facility] /EPI
--- NOTE | 2018-02-18 12:17 | 2DMMODE ---
[place] [address] 2 D/M-MODE ECHOCARDIOGRAM Name: HUGO KAUFFMAN Room: [address] IN [facility]#: [id number] Admission: 02/14/18 Attend Phys: Ankit Arce Discharge: Date of : 30 Date of Service: 02/18/18 1217 Report #: [id number] THIS REPORT FOR: //name// APPROVED REPORT Study performed: 02/17/2018 09:44:08 EXAM: Comprehensive 2D, Doppler, and color-flow Echocardiogram Patient Location: In-Patient Room #: 007 Status: routine BSA: 1.96 HR: 131 bpm BP: 122/74 mmHg Rhythm: Atrial Fibrillation Other Information Study Quality: Fair Indications Atrial Fibrillation AV block 2D Dimensions LVEF(%): 77.17 (>50%) IVSd: 11.73 (7-11mm) LVOT Diam: 19.61 (18-24mm) LVDd: 35.34 mm PWd: 13.26 (7-11mm) Ascending Ao: 30.15 (22-36mm) LVDs: 19.47 (25-40mm) Aortic Root: 30.34 mm Corrales's LVEF: 77.17 % Volumes Left Atrial Volume (Systole) LA ESV Index: 32.00 mL/m2 Aortic Valve AoV Peak Anthony.: 1.77 m/s AO Peak Gr.: 12.56 mmHg LVOT Max P.38 mmHg AO Mean Gr.: 8.05 mmHg LVOT Mean P.36 mmHg LVOT Max V: 0.77 m/s AO V2 VTI: 29.12 cm LVOT Mean V: 0.54 m/s HEATH (VTI): 1.34 cm2 LVOT V1 VTI: 12.89 [place] [address] 2 D/M-MODE ECHOCARDIOGRAM Name: HUGO KAUFFMAN Room: [address] IN [facility].#: [id number] Admission: 02/14/18 Attend Phys: Ankit Arce Discharge: Date of : 30 Date of Service: 02/18/18 1217 Report #: [id number] Lateral E' Anthony.: 0.10 m/s Pulmonary Valve PV Peak Anthony.: 1.10 m/s PV Peak Gr.: 4.84 mmHg Tricuspid Valve RAP Estimate: 5.00 mmHg TR Peak Gr.: 29.71 mmHg RVSP: 34.71 mmHg PA Pressure: 34.71 mmHg Left Ventricle The left ventricle is normal size. There is normal LV segmental wall motion. Mild concentric left ventricular hypertrophy. Left ventricular systolic function is normal. The left ventricular ejection fraction is within the normal range. LVEF is 60-65%. This study is not technically sufficient to allow evaluation of the LV diastolic function due to atrial fibrillation. Right Ventricle The right ventricle is normal size. The right ventricular systolic function is normal. Pacemaker lead is present in the right ventricle. Atria Left atrium is mildly dilated. The right atrium size is normal. Aortic Valve Moderate aortic valve sclerosis. No aortic regurgitation is present. Mild aortic stenosis. Mitral Valve The mitral valve is normal in structure. Mild mitral regurgitation. No evidence of mitral valve stenosis. Tricuspid Valve The tricuspid valve is normal in structure. Trace tricuspid regurgitation. estimated pa pressure 40 mm Hg Pulmonic Valve Pulmonic valve is not well visualized. There is no pulmonic valvular regurgitation. Great Vessels The aortic root is normal in size. IVC is normal in size and collapses with >50% [place] [address] 2 D/M-MODE ECHOCARDIOGRAM Name: HUGO KAUFFMAN Room: [address] IN [facility]#: [id number] Admission: 02/14/18 Attend Phys: Ankit Arce Discharge: Date of : 30 Date of Service: 02/18/18 1217 Report #: [id number] Pericardium There is no pericardial effusion. <Conclusion> Mild concentric left ventricular hypertrophy. LVEF is 60-65%. Left atrium is mildly dilated. Mild aortic stenosis. Mild mitral regurgitation. Trace tricuspid regurgitation. estimated pa pressure 40 mm Hg <ELECTRONICALLY SIGNED> By: Neeraj Hernandez MD, FACC 02/18/181216 16 16 Neeraj Hernandez MD, FAC /INF
[2018-02-18] MEDS ORDERED: EFFIENT10 MG PO (14:37)
[2018-02-18 15:54] VITALS: BP 114/77
--- NOTE | 2018-02-18 16:00 | NUR ---
PT CURRENLTY RESTING IN BED SIDE RECLINER, FAMILY AT SIDE VISITING- ROVING CARRIER IN PLACE ORDERED, TRACING TRACED/A-FIB- IV TO RIGHT AC AND LEFT AC NOTED TO LUÍS INFILTRATED-IV PLACE TO RUE, PT REPORTS PAIN POST PLACEMENT WITH NEED TO PLACE SECOND IV 22 GAUGE TO RIGHT AC, WITH RIGHT UE REMOVED- CONTINUED PAIN POST IV REMOVAL REPORTED WITH PRN IBUPROPHEN GIVEN AT 1309- MINIMAL RELIEF REPORTED WITH ORDERS OBATINED FOR TRMADOL AND GIVEN AT 1423-PT REPORTS TRAMADOL TO BE EFFECTIVE-IV AMIO GIVEN ALONG WITH PO PRESCIBED, PT REMAINS IN A-FIB- VERBAL ORDERS RECIEVED FOR CARDIOVERSION IN AM WITH PT TO BE NPO AT MIDNIGHT- PT AND FAMILY AWARE WITH CONCENT OBTAINED FOR CARDIOVERSION AND PLACED ON CHART- PT WORKING WITH THERAPIES THIS SHIFT PRESCIBED, TOLERATING WELL- NO BM REULTS NOTED AT THIS TIME, POST LACTULOSE ADMINISTRATION- CALL LIGHT AND PERSONAL BELONGINGS WITH IN REACH- ALL NEEDS MET AT THIS TIME-WCTM
[2018-02-18 20:00] VITALS: BP 135/96
[2018-02-19] VITALS: BP 112/64
[2018-02-19 04:00] VITALS: BP 142/86
--- NOTE | 2018-02-19 04:14 | NUR ---
PATIENT HAD EXTRA LARGE BM AFTER SOAP FRANCISCO JAVIER ENEMA AROUND 2200 YESTERDAY NIGHT. UP TO BATHROOM TO URINATE SERVERAL TIMES DURING THE NIGHT. NO INCONT. EPISODES HE IS CALLING OUT BEFORE NEEDING TO USE RESTROOM. DENIES COMPLAINTS OF PAIN, DISCOMFORT, OR SOA. O2 SATS WERE IN THE UPPER 80S WITH VITALS AT MIDNIGHT. PLACED ON 2 LITERS OF O2. CONT. V-PACE ON THE MONITOR. NO SIGNS OF DISTRESS. WILL PROCEED WITH CURRENT PLAN OF CARE AT THIS TIME.
[2018-02-19 06:04] LABS: CALCIUM 8.5 mg/dL (8.5-10.1); CREATININE 0.9 mg/dL (0.6-1.3); POTASSIUM 4.5 mmol/L (3.5-5.1)
[2018-02-19 07:54] VITALS: BP 132/85
--- NOTE | 2018-02-19 08:08 | NUR ---
[facility] can accept Pt for skilled at dc. CM provided dtr with HH list. Following for disposition.
--- NOTE | 2018-02-19 09:09 | NUR ---
ASSUMED CARE OF PT THIS AM AROUND 0715- TESTER OPERATOR IN PLACE ORDERED, TRACING SR WITH 1ST DEGREE THIS AM- NOTIFIED OF RYTHUM CHANGE WITH VERBAL ORDERS RECIEVED THIS AM TO D/C CARDIOVERSION AND ALLOW TO EAT THIS AM- PT A&O X4, WITH FORGETFULLNESS NOTED- CONTINENT OF BOWEL AND BLADDER- SBA WITH RW FOR TRANSFERS- LCTA, RESP EVEN AND UN-LABORED- VSS, O2 SAT 94% ON 2L THIS AM- ABDOMEN SOFT/ROUND/NON-TENDER, BS X4 QUADS- PT REPORTED TO HAVE HAD BM OVERNIGHT- UP TO CHAIR THIS AM, FAIR PO INTAKE NOTED WITH BREAKFAST- IV NOTED TO RIGHT AC INTACT, IV ABT GIVEN THIS AM PRESCIBED- OKAY TO D/C HOME THIS SHIFT RECIEVED PER THIS AM- CM IN TO SPEAK WITH PT WITH OKAY RECIEVED PER PT FOR SKILLED PLACEMENT AT D/C R/T WEAKNESS, DAUGHTER IN AGREEMENT- PT REPORTS GENERALIZED DISCOMFORT, DENIES NEED FOR PAIN MEDICAITONS AT THIS TIME- CALL LIGHT AND PERSONAL BELONGINGS WITH IN REACH- HOURLY ROUNDS IN PLACE R/T SAFETY/NEEDS- BED/CHAIR IN PLACE R/T SAFETY/NEEDS- ALL NEEDS MET AT THIS TIME-WCTM
--- NOTE | 2018-02-19 09:15 | NUR ---
Pt and family in agreement with Pt going to skilled, spoke with Shamika at [facility], asked that insurance auth be initiated. Anticipate dc soon. Following.
--- NOTE | 2018-02-19 10:59 | EKG ---
[place] [address] ELECTROCARDIOGRAM REPORT Name: DALYHUGO Room: [address] ADM IN M.R.#: [id number] Admission: 02/14/18 Attend Phys: Ankit Armendariz, Discharge: Date of : 30 Report #: [id number] THIS REPORT FOR: //name// [facility] Test Date: 2018-02-18 Test Time: 19:18:10 Pat Name: HUGO KAUFFMAN Department: Room: [address] Gender: M C Architect: : 1930 Requested By: Riley Red Order Number: [id number] Hesham MD: Neeraj Hernandez Measurements Intervals [place] Rate: 81 P: [place]: 258 QRS: -44 QRSD: 80 T: 103 QT: 449 QTc: 522 Interpretive Statements Atrial-paced rhythm Left axis deviation Prolonged QT interval Compared to ECG 02/18/2018 08:28:58 ventricular paced beats no longer seen Atrial fibrillation no longer present Electronically Signed On 02-19-2018 10:59:16 CDT by Neeraj Hernandez [email or web address] <ELECTRONICALLY SIGNED> By: Neeraj Hernandez MD, [facility] 02/19/18 1059 191 17 Neeraj Hernandez MD, [facility] /EPI
[2018-02-19 11:25] VITALS: BP 132/85
--- NOTE | 2018-02-19 11:39 | EKG ---
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1930 Requested By: Neeraj Hernandez Order Number: [id number] Hesham MD: Neeraj Hernandez Measurements Intervals [place] Rate: 85 P: 73 MD: 239 QRS: -58 QRSD: 91 T: 140 QT: 423 QTc: 503 Interpretive Statements Sinus rhythm Prolonged MD interval Consider left atrial enlargement Left anterior fascicular block Borderline repolarization abnormality Prolonged QT interval Electronically Signed On 02-19-2018 11:39:05 CDT by Neeraj Hernandez [email or web address] <ELECTRONICALLY SIGNED> By: Neeraj Hernandez MD, [facility] 02/19/18 1139 08 08 Neeraj Hernandez MD, FACC /EPI
[2018-02-19 12:00] VITALS: BP 130/83
[2018-02-19] MEDS ORDERED: PACERONE200 MG PO (13:38)
--- NOTE | 2018-02-19 14:18 | NUR ---
Pt discharging to [facility] today. Faxed dc orders. Chart copied. Nurse report number provided, . Updated Pt's dtr of disposition. Facility to strip picker b/t 6-630pm.
[2018-02-19] MEDS ORDERED: KEFLEX500 M1 PO (14:58)
[2018-02-19] MEDS ORDERED: ACETAMINOPHEN500 M1 PO (15:00)
[2018-02-19] MEDS ORDERED: BIOFREEZE118 ML TOP (15:02)
[2018-02-19] MEDS ORDERED: MIRALAX17 GM PO (15:03)
[2018-02-19 16:00] VITALS: BP 115/68
--- NOTE | 2018-02-19 17:17 | NUR ---
PT ZOEENLTY RESTING IN RECLINER- SEMICONDUCTOR DEVELOPMENT TECHNICIAN IN PLACE ORDERED, TRACING SR-ORDERS RECIEVED FOR OKAY TO BE D/C'D TO SKILLED THIS SHIFT PER AND CARDIOLOGY- CM HERE TO SET UP AND MADE ARRANGEMENTS FOR PT TO BE TRANSFERED TO [facility], FAMILY AWARE AND OKAY WITH TRANSFER WELL-IV TO RIGHT AC D/C'D ALONG WITH SEMICONDUCTOR DEVELOPMENT TECHNICIAN PRIOR TO D/C- WRITTED EDUCATION NOTED/MEDCATIONS PRINTED FOR TRANSPORT-SCRIPTS ALONG WITH FOLLOW UP INFORMATION IN PT PAPERWORK FOR TIME OF TRANSFER- BELONGINGS PACKED AND ACCOUNTED FOR PER TECH- PT CURRENLTY DRESSED AND UP IN BED SIDE CHAIR AWAITTING TRANSPORT THAT IS SCHEDULED FOR BETWEEN [id number]-OCKYED CALLED TO JOSE JUAN JEAN AT [facility] AT 1726; ALL QUESTIONS AND CONCERNS ADDRESSED-ALL NEEDS MET AT THIS TIME-JOSSE
== END 2018-02-19 18:21 | DRG 242 ==
LOC: M.ERS 09:55 → M.2W 12:32 → M.ICU 12:32 → M.TBA-ER 12:32 → M.2W 13:27 → M.ICU 02-15 12:23 → M.2W 02-17 14:56
PROVIDERS: Internal Medicine Cardiovascular Disease; Personal Emergency Response Attendant; ADMIT Family Medicine
DX: I44.2 Atrioventricular block, complete (principal); I50.33 Acute on chronic diastolic (congestive) heart failure; J96.20 Acute and chronic respiratory failure, unspecified whether with hypoxia or hypercapnia; F03.90 Unspecified dementia, unspecified severity, without behavioral disturbance, psychotic disturbance, mood disturbance, and anxiety; E03.9 Hypothyroidism, unspecified; I11.0 Hypertensive heart disease with heart failure; I48.91 Unspecified atrial fibrillation; K59.00 Constipation, unspecified; I25.10 Atherosclerotic heart disease of native coronary artery without angina pectoris; E78.5 Hyperlipidemia, unspecified; Z96.1 Presence of intraocular lens; Z98.42 Cataract extraction status, left eye; Z87.891 Personal history of nicotine dependence; Z98.41 Cataract extraction status, right eye; Z95.5 Presence of coronary angioplasty implant and graft; Z79.02 Long term (current) use of antithrombotics/antiplatelets; Z79.899 Other long term (current) drug therapy; Z82.49 Family history of ischemic heart disease and other diseases of the circulatory system

== ENCOUNTER 2018-03-25 18:07 | Inpatient (IN) | payer OTHER ==
[~2018-03-25] VITALS: Ht 177.8 cm; Wt 85.0 kg
[2018-03-25 18:07] VITALS: BP 135/81
[~2018-03-25 18:07] MED LIST changes: +ACETAMINOPHEN500 M1 PO; +ARICEPT 5 MG TAB5 MG PO; +BIOFREEZE118 ML TOP; +EFFIENT10 MG PO; +KEFLEX500 M1 PO; +MIRALAX17 GM PO; +PACERONE200 MG PO; +RED YEAST RICE600 MG PO
[2018-03-25 18:32] LABS: ABSOLUTE EOSINOPHILS 0.2 thou/uL (0.0-0.7); ABSOLUTE LYMPHOCYTES 1.3 thou/uL (0.8-5.3); ABSOLUTE MONOCYTES 0.9 thou/uL (0.0-1.2); ABSOLUTE NEUTROPHILS 5.7 thou/uL (1.6-8.1); BASOPHILS 0.6 %; EOSINOPHILS 2.2 %; HEMATOCRIT 39.4 % (42.0-52.0); HEMOGLOBIN 13.4 gm/dL (14.0-18.0); LYMPHOCYTES 16.2 %; MCH 31.7 pg (26.0-34.0); MCHC 34.1 g/dL (28.0-37.0); MONOCYTES 11.5 %; MPV 7.3 fl. (7.2-11.1); NUCLEATED RBCS 0 /100WBC; PLATELET COUNT* 190 thou/uL (150-400); POLYS 69.5 %; RBC 4.23 mil/uL (4.50-6.00); RDW-CV 13.9 % (10.5-14.5); WBC 8.2 thou/uL (4.0-11.0)
[2018-03-25 18:41] LABS: ANION GAP 7 mmol/L (7-16); BUN 20 mg/dL (7-18); CALCIUM 8.3 mg/dL (8.5-10.1); CHLORIDE 97 mmol/L (98-107); CO2 27 mmol/L (21-32); CREATININE 1.2 mg/dL (0.6-1.3); GLUCOSE 108 mg/dL (70-99); POTASSIUM 4.3 mmol/L (3.5-5.1); SODIUM 131 mmol/L (136-145)
[2018-03-25 18:44] LABS: APTT 27.1 Seconds (25.0-31.3); INR 1.1; PROTIME 11.3 Seconds (9.20-11.50)
[2018-03-25 19:04] LABS: ALBUMIN 3.6 g/dL (3.4-5.0); ALKALINE PHOSPHATASE 60 U/L (46-116); CK-MB MASS 3.8 ng/mL (<0.5-3.6); LIPASE 68 U/L (73-393); NT-PRO BRAIN NAT PEPTIDE 2476 pg/mL (<300); SGOT 27 U/L (15-37); SGPT 25 U/L (30-65); TOTAL BILIRUBIN 0.7 mg/dL (<0.1-1.0); TOTAL PROTEIN 6.8 g/dL (6.4-8.2); TROPONIN-I LEVEL <0.06 ng/mL (<0.06)
[2018-03-25 20:36] VITALS: BP 130/76
[2018-03-25 21:00] VITALS: BP 115/62
[2018-03-26] VITALS: BP 104/62
[2018-03-26 04:00] VITALS: BP 120/72
--- NOTE | 2018-03-26 05:35 | NUR ---
RECIEVED REPORT FROM ED NURSE. TRANSFERRED TO RM 203. PT A&OX4. ADMISSION HISTORY AND PHYSICAL ASSESSMENT COMPLETED AND CHARTED. PT ON RA WITH 97% O2 SAT. PT TRACING SR 1ST DEG/PVCS ON TELE. PT UP ADLIB TO TOILET. PT HAS A LACERATION ON HIS LEFT ARM. CLEANSED WIT WOUND CLEANSER AND PHOTOGRAPH TAKEN. INSTRUCTED ON NPO FOR CARDIO CONSULT. COMMUNICATES UNDERSTANDING. DENIES ANY PAIN OR DISCOMFORT. HOURLY ROUNDING OBSERVED. CALL LIGHT WITHIN REACH.
[2018-03-26 07:56] VITALS: BP 130/82
--- NOTE | 2018-03-26 08:10 | NUR ---
RECEIVED REPORT. ASSUMED CARE OF PT AT 0730. VSS. CARDIAC MONITORING IN PLACE SR WITH 1 DEGREE AVB. AM ASSESSMENT AND VITALS COMPLETED CHARTED. PT ALERT AND ORIETNED. PT ON RA. PT DENIES ANY CHEST PAIN THIS AM. PT IS UP AD NOHEMY. PT NPO PENDING CARDIOLOGY CONSULT. PT AND FAMILY INFORMED OF PLAN OF CARE. THEY COMMUNICATE UNDERSTANDING. CALL LIGHT IS WITHIN REACH. WILL CONTINUE TO MONITOR FOR DURATION OF SHIFT.
[2018-03-26] MEDS ORDERED: LIPITOR10 MG PO (09:10)
--- NOTE | 2018-03-26 10:00 | NUR ---
Pt is A&O. Resides at home alone. Supportive dtr that is involved in POC. No DME. Pt is current with [facility] and wants to resume services at [place], to fax orders [phone], p:[phone]. Hx of [facility] skilled. Pt is independent with ADLs. Possible dc to home today, pending CV clearance.
[2018-03-26 12:08] VITALS: BP 138/81
[2018-03-26 16:23] VITALS: BP 138/81
--- NOTE | 2018-03-26 16:38 | EKG ---
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1930 Requested By: Chris Marc Order Number: [id number] MD: Kashmir Bellamy Measurements Intervals [place] Rate: 70 P: -7 LA: 261 QRS: -37 QRSD: 100 T: 20 QT: 433 QTc: 468 Interpretive Statements Sinus rhythm Prolonged LA interval Left axis deviation Baseline wander in lead(s) V2 Compared to ECG 02/19/2018 08:10:49 Left-axis deviation persists Prolonged QT interval no longer present Electronically Signed On 03-26-2018 16:38:18 CDT by Kashmir Bellamy [email or web address] <ELECTRONICALLY SIGNED> By: Kashmir Bellamy MD, [facility] 03/26/18 1638 181 181 Kashmir Bellamy MD, [facility] /EPI
--- NOTE | 2018-03-26 16:43 | EKG ---
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: KEYONA : 1930 Requested By: Chris Marc Order Number: [id number] Reading MD: Kashmir Bellamy Measurements Intervals [place] Rate: 76 P: 72 AR: 235 QRS: 266 QRSD: 166 T: 73 QT: 514 QTc: 579 Interpretive Statements Ventricular-paced complexes No further analysis attempted due to paced rhythm Compared to ECG 02/19/2018 08:10:49 Sinus rhythm tracked by dual chamber pacemaker First degree AV block persists Left anterior fascicular block no longer present Prolonged QT interval no longer present Electronically Signed On 03-26-2018 16:43:54 CDT by Kashmir Bellamy [email or web address] <ELECTRONICALLY SIGNED> By: Kashmir Bellamy MD, FAC 03/26/18 1643 033 0332 Kashmir Bellamy MD, FAC /EPI
--- NOTE | 2018-03-26 16:46 | EKG ---
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1930 Requested By: Chris Marc Order Number: [id number] Hesham MD: Kashmir Bellamy Measurements Intervals [place] Rate: 86 P: -43 [place]: 154 QRS: 268 QRSD: 166 T: 74 QT: 473 QTc: 566 Interpretive Statements Ventricular-paced complexes No further analysis attempted due to paced rhythm Compared to ECG 02/19/2018 08:10:49 Sinus rhythm tracked by pacemaker First degree AV block persists Left anterior fascicular block no longer present Prolonged QT interval no longer present Electronically Signed On 03-26-2018 16:46:40 CDT by Kashmir Bellamy [email or web address] <ELECTRONICALLY SIGNED> By: Kashmir Bellamy MD, [facility] 03/26/18 1646 0904 0904 Kashmir Bellamy MD, [facility] /EPI
--- NOTE | 2018-03-26 17:07 | CARDNUC ---
[place] [address] CARDIAC NUCLEAR IMAGING REPORT Name: HUGO KAUFFMAN Room: [address] IN [facility]#: [id number] Admission: 03/25/18 Attend Phys: Randy Cotter, Discharge: Date of : 30 Date of Service: 03/26/18 1706 Report #: [id number] THIS REPORT FOR: //name// APPROVED REPORT Study performed: 03/26/2018 10:01:00 Indication: chest pain Patient Location: inpatient Room #: [facility] Stress Tech: Rosalia Bhagat Stress Nurse: Naomi Allen RN Ht: 5 ft 10 in Wt: 187 lbs BSA: 2.03 m2 BMI: 26.82 Medical History Medical History: pacemaker for complete heartblock, cad, hyperlipidemia, hypertension Medications: amiodorone, carvedilol, clopidogrel, lisinopril Allergies: nkda Previous Cardiac Procedures: pacemaker insertion, pci Exercise History: Sedentary Meds Held (24 hrs): carvedilol Resting Data Rest SPECT myocardial perfusion imaging was performed in supine position 30 minutes following the intravenous injection of 9.9 mCi of Tc-99m Sestamibi. Time of rest injection: 14:20 The images were gated to evaluate regional wall motion and calculate left ventricular ejection fraction. Administration Route: IV Administration Site: Left Wrist Pharmacologic Stress Pharmacologic stress test was performed by injecting Regadenoson 0.4 mg IV push over 10-15 seconds immediately followed by the intravenous injection of 36.0 mCi of Tc-99m Sestamibi. Time of stress injection: 15:45 Administration Route: IV Administration Site: Left Wrist Heart Rate at time of stress injection: 79 bpm. Gated Stress SPECT was performed 40 [place] [address] CARDIAC NUCLEAR IMAGING REPORT Name: HUGO KAUFFMAN Room: [address]#: [id number] Admission: 03/25/18 Attend Phys: Randy Cotter, Discharge: Date of : 30 Date of Service: 03/26/18 1706 Report #: [id number]. The images were gated to evaluate regional wall motion and calculate left ventricular ejection fraction. Prone imaging was performed. Stress Test Details Stress Test: Pharmacologic stress testing performed using 0.4 mg of regadenoson per 5 mL given IV over 10 seconds. Reason for pharmacologic stress test: physical limitation. HR Max Heart Rate (APMHR): 133 bpm Resting HR: 75 bpm Target HR (85% APMHR): 113 bpm Max HR Achieved: 79 bpm % of APMHR: 59 Recovery HR: 82 bpm HR response to stress: Normal HR response to stress BP Resting BP: 135/85 mmHg Recovery BP: 105/64 mmHg BP response to stress: Normal blood pressure response to stress. ECG Resting ECG: a paced, tracks v Stress ECG: same ST Change: none Recovery ECG: a paced Clinical Reason for Termination: Completed protocol Stress Symptoms: none Exercise duration: 0 min sec Exercise capacity: 1 METs Stress ECG Conclusion negative Study Quality Study: Fair Artifact: Mild Increased GI uptake Lung Uptake: Normal Study Data At rest, the left ventricular ejection fraction was 64%.. Post stress, the left ventricular ejection was 69%.. [place] [address] CARDIAC NUCLEAR IMAGING REPORT Name: HUGO KAUFFMAN Room: [address] IN [facility]#: [id number] Admission: 03/25/18 Attend Phys: Randy Cotter, Discharge: Date of : 30 Date of Service: 03/26/18 1706 Report #: [id number] SSS: 2 SRS: 2 SDS: 0 TID = 1.14. Perfusion STRESS SPECT images show a small mild intensity inferior defect which is noted to be fixed when compared to the SPECT rest images. There is uniform uptake of tracer in all other segments. The prone set shows normalization of the inferior defect indicating it is likely artifact. No reversible defects are seen. Images were reviewed using [employer]. Wall Motion normal all segments Nuclear Conclusion ECG Findings: negative for ischemia Clinical Findings: negative for ischemia Nuclear Findings: negative for ischemia Exercise Capacity: not assessed Left Ventricular Function: normal Risk Study: low Negative perfusion nuclear stress test for ischemia or infarct. <Conclusion> negative <ELECTRONICALLY SIGNED> By: Gregory Ly MD, FACC 03/26/181705 05 05 Gregory Ly MD, FACC /INF
--- NOTE | 2018-03-26 17:56 | NUR ---
DISCHARGE ORDERS RECEIED AND PREPARED. IV AND CARDIAC MONTIORING DISCONTINUED. PT AND FAMILY EDUCATED ON DISCAHRGE INSTRCTUIONS. ALL QUESTIONS AND CONCERNS ANSWERED AT THIS TIME. PT GIVEN COPY OF DISCAHRGE PAPERWORK AND NEW SCRIPT. PT'S PERSONAL BELONGINGS GATHERED AND SENT HOME WITH PT. PT ESCORTED OFF UNIT WITH NURSING STAFF.
== END 2018-03-26 17:57 | disposition home or self-care (01) | DRG 313 ==
LOC: M.ERS 18:07 → M.2W 18:42 → M.TBA-ER 18:42 → M.2W 21:02
PROVIDERS: Family Medicine; ADMIT Internal Medicine
DX: R07.89 Other chest pain (principal); I44.2 Atrioventricular block, complete; I50.32 Chronic diastolic (congestive) heart failure; Z96.1 Presence of intraocular lens; F03.90 Unspecified dementia, unspecified severity, without behavioral disturbance, psychotic disturbance, mood disturbance, and anxiety; E03.9 Hypothyroidism, unspecified; I11.0 Hypertensive heart disease with heart failure; I48.91 Unspecified atrial fibrillation; E78.5 Hyperlipidemia, unspecified; I35.0 Nonrheumatic aortic (valve) stenosis; Z60.2 Problems related to living alone; I25.10 Atherosclerotic heart disease of native coronary artery without angina pectoris; Z95.0 Presence of cardiac pacemaker; Z95.5 Presence of coronary angioplasty implant and graft; Z98.49 Cataract extraction status, unspecified eye; Z79.899 Other long term (current) drug therapy; Z87.891 Personal history of nicotine dependence

== ENCOUNTER 2020-02-01 10:22 | Inpatient (IN) | payer OTHER ==
[~2020-02-01] VITALS: Ht 175.3 cm; Wt 88.0 kg
[~2020-02-01 10:22] MED LIST changes: -LEVOTHROID75 MCG PO; +LIPITOR10 MG PO; -LISINOPRIL5 MG PO; +TIROSINT88 MCG PO
[2020-02-01 10:29] VITALS: BP 150/78
[2020-02-01 11:38] LABS: ABSOLUTE BASOPHILS 0.1 thou/uL (0.0-0.2); ABSOLUTE EOSINOPHILS 0.1 thou/uL (0.0-0.7); ABSOLUTE LYMPHOCYTES 0.9 thou/uL (0.8-5.3); ABSOLUTE MONOCYTES 0.6 thou/uL (0.0-1.2); ABSOLUTE NEUTROPHILS 4.7 thou/uL (1.6-8.1); BASOPHILS 1.7 %; EOSINOPHILS 1.9 %; HEMATOCRIT 35.2 % (42.0-52.0); HEMOGLOBIN 11.8 gm/dL (14.0-18.0); LYMPHOCYTES 13.2 %; MCH 30.2 pg (26.0-34.0); MCHC 33.5 g/dL (28.0-37.0); MCV 90.1 fL (80.0-100.0); MONOCYTES 9.8 %; MPV 8.6 fl. (7.2-11.1); NUCLEATED RBCS 0 /100WBC; PLATELET COUNT* 113 thou/uL (150-400); POLYS 73.4 %; RDW-CV 14.7 % (10.5-14.5); WBC 6.4 thou/uL (4.0-11.0)
[2020-02-01 11:42] LABS: CALCIUM 8.4 mg/dL (8.5-10.1); CREATININE 1.5 mg/dL (0.6-1.3); INR 1.2; POTASSIUM 4.2 mmol/L (3.5-5.1); PROTIME 12.7 Seconds (9.20-11.50)
[2020-02-01 11:53] LABS: BE 0.2 mmol/L (-2 to +3); PCO2 36.7 mmHg (35.0-45.0); PO2 87.9 mmHg (75.0-100.0); pH 7.436 (7.340-7.450)
[2020-02-01 11:53] LABS: ALBUMIN 3.6 g/dL (3.4-5.0); MAGNESIUM 1.9 mg/dL (1.8-2.4); TOTAL BILIRUBIN 1.2 mg/dL (<0.1-1.0); TOTAL PROTEIN 6.5 g/dL (6.4-8.2)
[2020-02-01 13:24] LABS: URINE BILIRUBIN NEGATIVE (Negative); URINE BLOOD NEGATIVE (Negative); URINE CLARITY CLEAR; URINE COLOR YELLOW; URINE GLUCOSE-RANDOM NEGATIVE (Negative); URINE KETONES NEGATIVE (Negative); URINE LEUKOCYTES-REFLEX NEGATIVE (Negative); URINE NITRITE-REFLEX NEGATIVE (Negative); URINE PROTEIN 1+ (Negative); URINE SPECIFIC GRAVITY 1.025 (1.005-1.030); URINE UROBILINOGEN 0.2 E.U./dl (0.2-1.0)
[2020-02-01 14:40] VITALS: BP 100/59
[2020-02-01 14:40] LABS: DIRECT BILIRUBIN 0.4 mg/dL (<0.1-0.3); TOTAL BILIRUBIN 1.2 mg/dL (<0.1-1.0)
[2020-02-01 14:50] VITALS: BP 114/69
[2020-02-01] MEDS ORDERED: NAMZARIC 14 MG1 EACH PO (15:07)
[2020-02-01] MEDS ORDERED: MELATONIN5 MG SUBLING (15:08)
[2020-02-01] MEDS ORDERED: SIMETHICON CHEW80 M1 PO (15:09)
--- NOTE | 2020-02-01 15:48 | NUR ---
RECIEVED REPORT FROM NEHA RN IN ER OF EXPECTED ADMISSION AT 1412- DX: PNA/DYSPNEA/ELVATED BMP- PT ARRIVED TO UNIT ROOM 201 VIA CART, ASSIST X1 TO BED- SUPREME COURT JUDGE PLACED ORDERED, TRACING A-FIB- DAUGHTER AT SIDE AT TIME OF ADMISSION AND ABLE TO HEP ANSWER QUESTIONS R/T PT BEING SOMULENT R/T TO ATIVAN ADMINISTRATION IN ER PRIOR TO ADMISSION- IV NOTED TO LEFT FA INTACT, IV ABT INFUSSING AT TIME OF ADMSSION AND HAVE SICE COMPLETED AND IV SL- COURSE LUNG SOUNDS NOTED TO BASES, AUDIBLE WHEEZES- NON-PRODUCTIVE COUGH NOTED- VS NOTED IN [employer] LLCTECH, O2 SAT NOTED AT 97% ON 2L VIA NC- ABD SOFT/ROUND/NON-TENDER, BS X4 QUADS-NO APARENT PAIN AT TIME OF ADMISSION- SIDER REPORTS NO VISION NOTED TO RIGHT EYE AND LIMITED TO LEFT- CALL LIGHT AND PERSONAL BELONGINGS WITH IN REACH- BED ALARM IN PLACE AND WORKING FOR PT SAFETY- HOURLY ROUNDS IN PLACE R/T SAFETY/NEEDS- ALL NEEDS MET AT THIS TIME-WCKEHINDE
--- NOTE | 2020-02-01 16:04 | EKG ---
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 : 1930 Requested By: Mena Cervantes Order Number: [id number] MD: Kashmir Bellamy Measurements Intervals [place] Rate: 78 P: [place]: QRS: -36 QRSD: 100 T: QT: 409 QTc: 466 Interpretive Statements Atrial fibrillation Ventricular premature complex; occasional paced beat Probable inferior infarct, age indeterminate Compared to ECG 03/26/2018 09:04:34 Ventricular premature complex(es) now present Myocardial infarct finding now present Electronically Signed On 02-01-2020 16:04:03 CDT by Kashmir Bellamy [email or web address] <ELECTRONICALLY SIGNED> By: Kashmir Bellamy MD, [facility] 02/01/20 1604 1034 1034 Kashmir Bellamy MD, [facility] /EPI
--- NOTE | 2020-02-01 16:23 | 2DMMODE ---
[place] [address] 2 D/M-MODE ECHOCARDIOGRAM Name: HUGO KAUFFMAN Room: [address] IN [facility]#: [id number] Admission: 02/01/20 Attend Phys: Randy Cotter, Discharge: Date of : 30 Date of Service: 02/01/20 1623 Report #: [id number] THIS REPORT FOR: cc: Bulmaro Ruelas MD, Karmel MD Holkins,Kashmir Stewart MD [facility] ~ APPROVED REPORT Study performed: 02/01/2020 15:12:18 EXAM: Comprehensive 2D, Doppler, and color-flow Echocardiogram Patient Location: In-Patient Room #: [facility] Status: routine BSA: 1.98 HR: 71 bpm BP: 121/64 mmHg Rhythm: NSR Other Information Study Quality: Good Indications Dyspnea 2D Dimensions IVSd: 16.69 (7-11mm) LVOT Diam: 18.42 (18-24mm) LVDd: 36.80 mm PWd: 11.42 (7-11mm) Ascending Ao: 28.82 (22-36mm) LVDs: 26.24 (25-40mm) Aortic Root: 33.35 mm Volumes Left Atrial Volume (Systole) LA ESV Index: 37.90 mL/m2 Aortic Valve AoV Peak Anthony.: 1.27 m/s AO Peak Gr.: 6.45 mmHg LVOT Max P.91 mmHg AO Mean Gr.: 4.14 mmHg LVOT Mean P.51 mmHg LVOT Max V: 0.48 m/s AO V2 VTI: 25.43 cm LVOT Mean V: 0.33 m/s HEATH (VTI): 1.09 cm2 LVOT V1 VTI: 10.41 [place] [address] 2 D/M-MODE ECHOCARDIOGRAM Name: HUGO KAUFFMAN Room: [address] IN ..#: [id number] Admission: 02/01/20 Attend Phys: Randy Cotter, Discharge: Date of : 30 Date of Service: 02/01/20 1623 Report #: [id number] TDI Medial E' Anthony.: 0.07 m/s Lateral E' Anthony.: 0.06 m/s Tricuspid Valve RAP Estimate: 10.00 mmHg TR Peak Gr.: 24.41 mmHg RVSP: 34.00 mmHg PA Pressure: 34.00 mmHg Left Ventricle The left ventricle is normal size. There is normal LV segmental wall motion. Mild to moderate concentric left ventricular hypertrophy. Left ventricular systolic function is normal. LVEF is 55%. This study is not technically sufficient to allow evaluation of the LV diastolic function due to atrial fibrillation. Right Ventricle The right ventricle is normal size. The right ventricular systolic function is normal. Pacemaker lead is present in the right ventricle. Atria Left atrium is moderately dilated. Right atrium is mildly dilated. Aortic Valve Moderate aortic valve sclerosis. No aortic regurgitation is present. No hemodynamically significant valvular aortic stenosis. Mitral Valve Mild mitral annular calcification. Mild to moderate mitral regurgitation. No evidence of mitral valve stenosis. Tricuspid Valve The tricuspid valve is normal in structure. Mild tricuspid regurgitation. Mild pulmonary hypertension. Pulmonic Valve Pulmonic valve is not well visualized. Great Vessels The aortic root is normal in size. IVC is dilated and collapses <50% with inspiration. Pericardium There [place] [address] 2 D/M-MODE ECHOCARDIOGRAM Name: HUGO KAUFFMAN Room: [address]#: [id number] Admission: 02/01/20 Attend Phys: Randy Cotter, Discharge: Date of : 30 Date of Service: 02/01/20 1623 Report #: [id number] <Conclusion> The left ventricle is normal size. Mild to moderate concentric left ventricular hypertrophy. Left ventricular systolic function is normal. LVEF is 55%. This study is not technically sufficient to allow evaluation of the LV diastolic function due to atrial fibrillation. The right ventricle is normal size. Left atrium is moderately dilated. Right atrium is mildly dilated. Moderate aortic valve sclerosis. No aortic regurgitation is present. No hemodynamically significant valvular aortic stenosis. Mild mitral annular calcification. Mild to moderate mitral regurgitation. The tricuspid valve is normal in structure. Mild tricuspid regurgitation. Mild pulmonary hypertension. IVC is dilated and collapses <50% with inspiration. There is no pericardial effusion. There is normal LV segmental wall motion. <ELECTRONICALLY SIGNED> By: Kashmir Bellamy MD, [facility] 02/01/20 1623 1623 162 Kahsmir Bellamy MD, FACC /INF
[2020-02-01 19:40] VITALS: BP 128/61
[2020-02-02] VITALS: BP 109/68
[2020-02-02 03:58] LABS: CALCIUM 8.5 mg/dL (8.5-10.1); CREATININE 1.5 mg/dL (0.6-1.3); POTASSIUM 4.4 mmol/L (3.5-5.1)
[2020-02-02 04:00] VITALS: BP 102/65
--- NOTE | 2020-02-02 05:37 | NUR ---
PT SLEPT MOST OF SHIFT. ASSESSMENT DOCUMENTED. MEDS GIVEN PER E-MAR. IV PATENT. NO REPORTS OF PAIN. PT DROWZY FIRST PART OF SHIFT. PT MORE ALERT THIS AM. FALL PRECAUTIONS IN PLACE. WILL CONTINUE WITH PLAN OF CARE.
[2020-02-02 07:41] VITALS: BP 134/87
--- NOTE | 2020-02-02 08:58 | NUR ---
ASSUMED CARE OF PT THIS AM AROUND 0715- CRITICAL CARE PHYSICIAN ASSISTANT IN PLACE ORDERED, TRACING A-FIB, RATE CONTROLED-PT A&O X3, FORGETFULL- CONT VS INCONT OF B/B- SBA WITH CANE FOR TRANSFERS- COURSE LUNG SOUNDS NOTED, DYSPNEA NOTED ON EXERTION- VSS, O2 SAT 95% ON RA- ABD SOFT/ROUND/NON-TENDER, BS X4 QUADS- PT REPORTS BM THIS AM- IV NOTED TO LEFT FA INTACT AND SL- PT NPO FOR PLANNED RIGHT THORACENTESIS THIS AM- F/R OF [address] ORDERED- PT DENIES ANY C/O PAIN/DISCOMFORT AT THIS TIME- CALL LIGHT AND PERSONAL BELONGINGS WITH IN REACH- BED/CHAIR ALARM IN PLACE AND WORKING FOR PT SAFETY- ALL NEEDS MET AT THIS TIME-WCTM
--- NOTE | 2020-02-02 11:20 | NUR ---
Pt is A&O. Resides at home alone. Independent with ADLs, dtr assists with IADLs. Dtr sets up Pt's meds, provides transportation, and completes Pt's shopping. Pt has a cane that he uses PRN. Hx of Giacomo . Hx of skilled at [facility]. Pt to have thora today. Goal is home at sd with [employer] . Following.
[2020-02-02 12:09] LABS: BF RBC <1000 /mm3; TOTAL CELL COUNT 399 /mm3
[2020-02-02 12:20] LABS: BF LYMPHOCYTES 19 %; BF MONOCYTES 79 %; BF POLYS 2 %; BF TISSUE 2 /100 WBC
[2020-02-02 12:21] LABS: TOTAL VOLUME 1150 ml
[2020-02-02 12:22] LABS: CLARITY CLEAR; SOURCE PLEURAL FLUID
[2020-02-02 17:19] VITALS: BP 98/61
[2020-02-02 18:25] VITALS: BP 80/50
[2020-02-02 19:40] VITALS: BP 99/67
[2020-02-03] VITALS: BP 90/54
[2020-02-03 04:00] VITALS: BP 121/79
[2020-02-03 04:18] LABS: ABSOLUTE BASOPHILS 0.1 thou/uL (0.0-0.2); ABSOLUTE LYMPHOCYTES 1.2 thou/uL (0.8-5.3); ABSOLUTE MONOCYTES 0.7 thou/uL (0.0-1.2); ABSOLUTE NEUTROPHILS 4.8 thou/uL (1.6-8.1); BASOPHILS 0.9 %; EOSINOPHILS 0.6 %; HEMATOCRIT 32.9 % (42.0-52.0); HEMOGLOBIN 11.4 gm/dL (14.0-18.0); LYMPHOCYTES 17.3 %; MCH 30.8 pg (26.0-34.0); MCHC 34.8 g/dL (28.0-37.0); MCV 88.7 fL (80.0-100.0); MONOCYTES 10.3 %; MPV 9.2 fl. (7.2-11.1); NUCLEATED RBCS 0 /100WBC; PLATELET COUNT* 109 thou/uL (150-400); POLYS 70.9 %; RBC 3.71 mil/uL (4.50-6.00); RDW-CV 14.1 % (10.5-14.5); WBC 6.7 thou/uL (4.0-11.0)
[2020-02-03 04:59] LABS: ALBUMIN 3.4 g/dL (3.4-5.0); CREATININE 1.8 mg/dL (0.6-1.3); MAGNESIUM 1.8 mg/dL (1.8-2.4); POTASSIUM 3.6 mmol/L (3.5-5.1); TOTAL BILIRUBIN 0.7 mg/dL (<0.1-1.0); TOTAL PROTEIN 6.2 g/dL (6.4-8.2)
--- NOTE | 2020-02-03 05:09 | NUR ---
PT SLEPT ON AND OFF THIS SHIFT. ASSESSMENT DOCUMENTED. MEDS GIVEN PER E-SEP. IV PATENT. NO REPORTS OF PAIN THIS SHIFT. PT REPORTS HE FEELS THAT HIS BREATHING IS BETTER TONGIHT. FALL PRECAUTIONS IN PLACE. WILL CONTINUE WITH PLAN OF CARE.
[2020-02-03 09:04] VITALS: BP 125/76
--- NOTE | 2020-02-03 09:21 | CON ---
[address] [address] CONSULTATION Name: HUGO KAUFFMAN Room: [address] IN .R.#: [id number] Admission: 02/01/20 Attend Phys: Randy Cotter MD Discharge: Date of : 30 Report #: [id number] THIS REPORT FOR: //name// cc: Bulmaro Ruelas MD, Karmel MD ~ THIS REPORT FOR: //name// CC: Neeraj Hernandez MD [facility] Randy Ruelas MD DATE OF SERVICE: 02/01/2020 INDICATION: Heart failure. HISTORY OF PRESENT ILLNESS: The patient is an 89-year-old gentleman with history of coronary artery disease, heart block, status post dual chamber pacemaker placement and subsequent persistent atrial fibrillation. The patient presents to the Emergency Room with increasing shortness of breath, progressing to the point of dyspnea with minimal activity. The patient denies any chest pain with this. He denies any cough or fevers. He does have a history of diastolic heart failure and pulmonary hypertension. By CT chest, he is found to have bilateral pleural effusions. Chest x-ray shows evidence of possible pulmonary edema as well as left lower lobe pneumonia versus atelectasis. PAST MEDICAL HISTORY: 1. Coronary artery disease with remote percutaneous coronary intervention. 2. Chronic diastolic heart failure. 3. Heart block, status post dual chamber pacemaker placement. 4. Now persistent atrial fibrillation. 5. Chronic renal insufficiency. 6. Dementia. ALLERGIES: None documented. HOME MEDICATIONS: Nitrostat sublingual p.r.n., Protonix 40 mg daily, CoQ10 100 mg daily, multivitamin 1 tablet daily, red yeast rice extract daily, Aricept 20 mg daily, Keflex 500 mg t.i.d., Tylenol p.r.n., Biofreeze p.r.n., MiraLax 17 grams daily, carvedilol 25 mg b.i.d., Plavix 75 mg daily, Levothroid 75 mcg daily, lisinopril 5 mg daily, fish oil 1200 mg daily. FAMILY HISTORY: Noncontributory. SOCIAL HISTORY: The patient quit smoking remotely. [place] [address] CONSULTATION Name: HUGO KAUFFMAN Room: [address]#: [id number] Admission: 02/01/20 Attend Phys: Randy Cotter MD Discharge: Date of : 30 Report #: [id number] REVIEW OF SYSTEMS: Not obtainable. PHYSICAL EXAMINATION: VITAL SIGNS: Blood pressure 114/69, pulse in the 60s and irregular. GENERAL: This is an elderly gentleman who is somewhat lethargic, but arousable. HEENT: Head is normocephalic, atraumatic. Extraocular muscles appear to be intact. Mucous membranes appear to be dry. NECK: Shows no obvious jugular venous distention. CHEST: Reveals basilar crackles. CARDIOVASCULAR: Reveals a controlled rate that is irregular. I do not appreciate obvious gallop or murmur. ABDOMEN: Reveals normal bowel sounds. EXTREMITIES: Shows no edema. SKIN: Dry. LABORATORY DATA: A 12-lead EKG shows atrial fibrillation with a controlled ventricular response rate and occasional ventricular pacing. I do not appreciate any acute changes. CT of the chest shows bilateral pleural effusions with diffuse chronic interstitial changes. Chest x-ray shows some patchy infiltrates, especially in the lower lobes, possibly consistent with edema. LABORATORY DATA: Labs are reviewed. Sodium 137, potassium 4.2, chloride 101, bicarbonate 30, BUN 26, creatinine 1.5, serum glucose 165. Troponins less than 0.06 on arrival. Subsequent troponin is pending. NT-proBNP 7469. White blood cell count 6.4, hemoglobin 11.8, platelet count 113,000. Stat COVID not detected. IMPRESSION AND RECOMMENDATIONS: 1. Acute on chronic diastolic heart failure. At this point in time, I would be in favor of diuresis with IV diuretic. Follow I's and O's and renal function closely. Complete rule out with serial enzymes. 2. Persistent atrial fibrillation, rate appears adequately controlled. The patient has been on Xarelto 20 mg daily. 3. History of pacemaker. Remote interrogation shows normal function. 4. Coronary artery disease. No symptoms to suggest angina or acute coronary syndrome. Initial troponin is unremarkable. Serial troponins pending. 5. History of dyslipidemia. The patient intolerant to statin drugs. Continue CoQ10 and red yeast rice extract. <ELECTRONICALLY SIGNED> By: Berny Payne MD, FACC 02/03/20 0921 1613 1716Miclanette Payne MD, FACC /nt
[2020-02-03 12:27] VITALS: BP 85/54
--- NOTE | 2020-02-03 13:13 | NUR ---
Neyda yesterday. Cr elevated. On lasix IV
--- NOTE | 2020-02-03 15:07 | PATH ---
[address] [address] PATHOLOGY RPT PROCEDURE Name: HUGO KAUFFMAN Room: [address] IN [facility]#: [id number] Admission: 02/01/20 Date of : 30 Discharge: Report #: [id number] Path Case #: [id number] Note [facility] Accession Number: [id number] TESTS RESULT FLAG UNITS REF RANGE LAB Clinician Provided Cytology Information No. of containers..01 Other (Miscellaneous) Source: RIGHT PLEURAL FLUID DIAGNOSIS: 02 RIGHT PLEURAL FLUID INCONCLUSIVE. THIS INTERPRETATION INCLUDES EVALUATION OF A CELL BLOCK. COMMENT, FEW ATYPICAL CELLS ARE PRESENT NOT DIAGNOSTIC. IMMUNOPEROXIDASE STAINS CANNOT BE DONE CELL BLOCK DOES NOT REVEAL THESE CELLS. SUGGEST CLINICAL CORRELATION. Signed out by: 02 Arnoldo Cade MD, Pathologist NPI- [id number] Performed by: Rashaad Ariza, Quill Reamer ([facility]) Gross description: 01 30ML, HAZY YELLOW, 1 TP 1 CB /LCS 02/02/2020 1710 Local FLAG LEGEND: L-Low Normal,H-High Normal,LL-Alert Low,HH-Alert High <-Panic Low,>-Panic High,A-Abnormal,AA-Critical Abnormal Performed at: [address] [place] [address] Jesus Randhawa MD, [address] [place] [id number] Caleb Restrepo MD, Specimen Comment: A courtesy copy of this report has been sent to [phone] Specimen Comment: [phone], Specimen Comment: Report sent to DR BEARD,DR THAKKAR / DR MATOS Performed at: [address], [place], [place] [id number] MD Jesus Randhawa MD Phone: [phone]
[2020-02-03 16:40] VITALS: BP 85/55
--- NOTE | 2020-02-03 18:15 | NUR ---
PT UP AND AROUND HALLS. REMAINS ON RA AND TOLERATING PO WELL. PT PROGRESSING TOWARDS GOALS.
[2020-02-03 20:00] VITALS: BP 89/64
[2020-02-04] VITALS: BP 102/70
[2020-02-04 04:00] VITALS: BP 114/76
[2020-02-04 05:08] LABS: HEMATOCRIT 33.1 % (42.0-52.0); HEMOGLOBIN 11.4 gm/dL (14.0-18.0); MCH 30.4 pg (26.0-34.0); MCHC 34.4 g/dL (28.0-37.0); MCV 88.5 fL (80.0-100.0); MPV 9.1 fl. (7.2-11.1); RBC 3.74 mil/uL (4.50-6.00); RDW-CV 14.5 % (10.5-14.5)
[2020-02-04 05:25] LABS: ALBUMIN 3.3 g/dL (3.4-5.0); CALCIUM 8.1 mg/dL (8.5-10.1); CREATININE 1.7 mg/dL (0.6-1.3); POTASSIUM 3.8 mmol/L (3.5-5.1); TOTAL BILIRUBIN 0.7 mg/dL (<0.1-1.0)
--- NOTE | 2020-02-04 06:44 | NUR ---
ASSUMED PT CARE AT APPROX 1930. PT IS AWAKE AND ORIENTED X4. PT IS TRACING AFIB ON THE LEATHER FLESHER. PT DENIES CHEST PAIN/DISCOMFORT. PT IS NOT IN RESPIRATORY DISTRESS, NO DESATURATIONS NOTED ON ROOM AIR. NO ACUTE CHANGES OVERNIGHT. CALL LIGHT WITHIN REACH. HOURLY ROUNDING DONE FOR PT SAFETY. HIGH FALL PRECAUTIONS IN PLACE.
--- NOTE | 2020-02-04 10:00 | NUR ---
Pt discharging to home today, faxed HH orders to [facility] . Updated dtr on dispo
--- NOTE | 2020-02-04 10:57 | NUR ---
Cardiac Rehab attmepted to educate patient, but inappropriate due to mental status. No family in room.
[2020-02-04] MEDS ORDERED: XARELTO20 MG PO (12:42)
[2020-02-04] MEDS ORDERED: ARICEPT10 M1 PO (12:44)
[2020-02-04 12:55] VITALS: BP 99/68
--- NOTE | 2020-02-04 16:22 | NUR ---
ORDER RECEIVED TO DISCHARGE PATIENT HOME TO SELF CARE. MED REC, MEDICATION EDUCATION, STROKE EDUCATION, AND NEED FOR FOLLOW UP APPOINTMENTS COVERED WITH PATIENT AND STATED UNDERSTOOD BY PATIENT. IV AND TELEMETRY PACK REMOVED AND PATINET WAS IN NO APPARENT SIGNS OF DISTRESS AT THIS TIME. DC TIME OF 15:25. HOURLY ROUNDING COMPLETED FOR PATIENT SAFETY
[2020-02-05 16:50] LABS: SOURCE PLEURAL
== END 2020-02-04 15:25 | disposition home health service (06) | DRG 291 ==
LOC: M.ERS 10:22 → M.2W 12:53 → M.TBA-ER 12:53 → M.2W 14:45
PROVIDERS: Internal Medicine; Internal Medicine Cardiovascular Disease; Personal Emergency Response Attendant; ADMIT Internal Medicine; ATTEND Internal Medicine
PROC: 0W993ZZ Drainage of Right Pleural Cavity, Percutaneous Approach (ICD-10-PCS; principal; 2020-02-02)
DX: I13.0 Hypertensive heart and chronic kidney disease with heart failure and stage 1 through stage 4 chronic kidney disease, or unspecified chronic kidney disease (principal); I50.33 Acute on chronic diastolic (congestive) heart failure; G92 Toxic encephalopathy; N17.9 Acute kidney failure, unspecified; I48.19 Other persistent atrial fibrillation; J91.8 Pleural effusion in other conditions classified elsewhere; Z20.828 Contact with and (suspected) exposure to other viral communicable diseases; K21.9 Gastro-esophageal reflux disease without esophagitis; I34.0 Nonrheumatic mitral (valve) insufficiency; I27.20 Pulmonary hypertension, unspecified; E78.5 Hyperlipidemia, unspecified; I25.10 Atherosclerotic heart disease of native coronary artery without angina pectoris; N18.3 Chronic kidney disease, stage 3 (moderate); E03.9 Hypothyroidism, unspecified; G30.9 Alzheimer's disease, unspecified; F02.80 Dementia in other diseases classified elsewhere, unspecified severity, without behavioral disturbance, psychotic disturbance, mood disturbance, and anxiety; D64.9 Anemia, unspecified; D69.6 Thrombocytopenia, unspecified; Z96.1 Presence of intraocular lens; Z95.5 Presence of coronary angioplasty implant and graft; Z98.49 Cataract extraction status, unspecified eye; Z79.01 Long term (current) use of anticoagulants; Z95.0 Presence of cardiac pacemaker; Z87.891 Personal history of nicotine dependence

== ENCOUNTER 2020-02-08 15:24 | Observation (INO) | payer OTHER ==
[~2020-02-08] VITALS: Ht 175.3 cm; Wt 81.6 kg
[~2020-02-08 15:24] MED LIST changes: +ARICEPT10 M1 PO; +MELATONIN5 MG SUBLING; +NAMZARIC 14 MG1 EACH PO; +SIMETHICON CHEW80 M1 PO; +XARELTO20 MG PO
[2020-02-08 15:37] VITALS: BP 170/118
[2020-02-08 16:16] LABS: BE -0.2 mmol/L (-2 to +3); PCO2 38.8 mmHg (35.0-45.0); PO2 89.1 mmHg (75.0-100.0); pH 7.413 (7.340-7.450)
[2020-02-08 16:20] LABS: ABSOLUTE BASOPHILS 0.1 thou/uL (0.0-0.2); ABSOLUTE EOSINOPHILS 0.2 thou/uL (0.0-0.7); ABSOLUTE MONOCYTES 0.8 thou/uL (0.0-1.2); BASOPHILS 1.9 %; EOSINOPHILS 3.2 %; HEMATOCRIT 35.2 % (42.0-52.0); LYMPHOCYTES 16.1 %; MCH 30.6 pg (26.0-34.0); MCHC 34.3 g/dL (28.0-37.0); MCV 89.2 fL (80.0-100.0); MONOCYTES 12.9 %; MPV 8.9 fl. (7.2-11.1); NUCLEATED RBCS 0 /100WBC; PLATELET COUNT* 116 thou/uL (150-400); POLYS 65.9 %; RBC 3.94 mil/uL (4.50-6.00); RDW-CV 14.6 % (10.5-14.5); WBC 6.1 thou/uL (4.0-11.0)
[2020-02-08 16:28] LABS: CALCIUM 8.3 mg/dL (8.5-10.1); CREATININE 1.7 mg/dL (0.6-1.3); INR 1.1; POTASSIUM 4.8 mmol/L (3.5-5.1); PROTIME 11.7 Seconds (9.20-11.50)
[2020-02-08 16:39] LABS: ALBUMIN 3.7 g/dL (3.4-5.0); MAGNESIUM 2.2 mg/dL (1.8-2.4); TOTAL BILIRUBIN 0.7 mg/dL (<0.1-1.0); TOTAL PROTEIN 6.7 g/dL (6.4-8.2)
[2020-02-08 17:52] LABS: URINE BILIRUBIN NEGATIVE (Negative); URINE BLOOD NEGATIVE (Negative); URINE CLARITY CLEAR; URINE COLOR YELLOW; URINE GLUCOSE-RANDOM NEGATIVE (Negative); URINE KETONES NEGATIVE (Negative); URINE LEUKOCYTES-REFLEX NEGATIVE (Negative); URINE NITRITE-REFLEX NEGATIVE (Negative); URINE PROTEIN 1+ (Negative)
[2020-02-08 20:55] VITALS: BP 134/99
[2020-02-08 21:13] VITALS: BP 94/70
[2020-02-09 00:05] VITALS: BP 106/84
[2020-02-09 04:00] VITALS: BP 117/55
[2020-02-09 05:46] LABS: ABSOLUTE BASOPHILS 0.1 thou/uL (0.0-0.2); ABSOLUTE EOSINOPHILS 0.2 thou/uL (0.0-0.7); ABSOLUTE LYMPHOCYTES 0.6 thou/uL (0.8-5.3); ABSOLUTE MONOCYTES 0.8 thou/uL (0.0-1.2); ABSOLUTE NEUTROPHILS 4.3 thou/uL (1.6-8.1); EOSINOPHILS 3.3 %; HEMATOCRIT 32.5 % (42.0-52.0); LYMPHOCYTES 10.5 %; MCH 30.1 pg (26.0-34.0); MCHC 33.9 g/dL (28.0-37.0); MCV 88.9 fL (80.0-100.0); MONOCYTES 14.1 %; MPV 9.1 fl. (7.2-11.1); NUCLEATED RBCS 0 /100WBC; PLATELET COUNT* 95 thou/uL (150-400); POLYS 71.1 %; RBC 3.65 mil/uL (4.50-6.00); RDW-CV 14.2 % (10.5-14.5)
[2020-02-09 06:04] LABS: CALCIUM 8.1 mg/dL (8.5-10.1); CREATININE 1.5 mg/dL (0.6-1.3); POTASSIUM 4.2 mmol/L (3.5-5.1)
[2020-02-09 08:00] VITALS: BP 119/73
[2020-02-09 12:30] VITALS: BP 104/47
--- NOTE | 2020-02-09 13:45 | EKG ---
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 : 1930 Requested By: Mena Cervantes Order Number: [id number] MD: Neeraj Hernandez Measurements Intervals [place] Rate: 102 P: MD: QRS: -30 QRSD: 90 T: 74 QT: 414 QTc: 540 Interpretive Statements Atrial fibrillation with a ventricular paced beats Left axis deviation Low voltage, precordial leads Borderline prolonged QT interval Compared to ECG 02/01/2020 10:34:32 pvc no longer seen Electronically Signed On 02-09-2020 13:45:10 CDT by Neeraj Hernandez [email or web address] <ELECTRONICALLY SIGNED> By: Neeraj Hernandez MD, FAC 02/09/20 1345 1538 1538 Neeraj Hernandez MD, FAC /EPI
[2020-02-09 16:00] VITALS: BP 116/66
[2020-02-09 21:48] VITALS: BP 107/61
[2020-02-10] VITALS: BP 115/56
[2020-02-10 04:00] VITALS: BP 92/52
[2020-02-10 05:07] LABS: ABSOLUTE BASOPHILS 0.1 thou/uL (0.0-0.2); ABSOLUTE EOSINOPHILS 0.3 thou/uL (0.0-0.7); ABSOLUTE LYMPHOCYTES 1.2 thou/uL (0.8-5.3); ABSOLUTE MONOCYTES 0.8 thou/uL (0.0-1.2); ABSOLUTE NEUTROPHILS 3.1 thou/uL (1.6-8.1); BASOPHILS 2.4 %; EOSINOPHILS 5.5 %; HEMATOCRIT 33.1 % (42.0-52.0); HEMOGLOBIN 11.2 gm/dL (14.0-18.0); LYMPHOCYTES 21.9 %; MCH 30.4 pg (26.0-34.0); MCV 89.5 fL (80.0-100.0); MONOCYTES 14.9 %; MPV 8.8 fl. (7.2-11.1); NUCLEATED RBCS 0 /100WBC; PLATELET COUNT* 102 thou/uL (150-400); POLYS 55.3 %; RDW-CV 14.3 % (10.5-14.5); WBC 5.5 thou/uL (4.0-11.0)
[2020-02-10 05:18] LABS: CALCIUM 8.1 mg/dL (8.5-10.1); CREATININE 1.6 mg/dL (0.6-1.3); POTASSIUM 4.3 mmol/L (3.5-5.1)
[2020-02-10 08:00] VITALS: BP 104/69
== END 2020-02-10 16:35 | disposition home or self-care (01) ==
LOC: M.ERS 15:24 → M.2W 18:35 → M.TBA-ER 18:35 → M.2W 20:48
PROVIDERS: Personal Emergency Response Attendant; ADMIT Internal Medicine; ATTEND Internal Medicine
DX: I13.0 Hypertensive heart and chronic kidney disease with heart failure and stage 1 through stage 4 chronic kidney disease, or unspecified chronic kidney disease (principal); I50.9 Heart failure, unspecified; N18.9 Chronic kidney disease, unspecified; I25.10 Atherosclerotic heart disease of native coronary artery without angina pectoris; J18.9 Pneumonia, unspecified organism; I48.91 Unspecified atrial fibrillation; F03.90 Unspecified dementia, unspecified severity, without behavioral disturbance, psychotic disturbance, mood disturbance, and anxiety; E03.9 Hypothyroidism, unspecified; Z79.899 Other long term (current) drug therapy; Z79.01 Long term (current) use of anticoagulants; Z20.828 Contact with and (suspected) exposure to other viral communicable diseases; Z79.82 Long term (current) use of aspirin

== ENCOUNTER 2020-02-12 20:33 | Inpatient (IN) | payer OTHER ==
[~2020-02-12] VITALS: Ht 175.3 cm; Wt 89.4 kg
[2020-02-12 20:41] VITALS: BP 142/84
[2020-02-12] MEDS ORDERED: CEFDINIR300 MG PO (20:46)
[2020-02-12 21:11] LABS: ABSOLUTE EOSINOPHILS 0.3 thou/uL (0.0-0.7); ABSOLUTE LYMPHOCYTES 1.1 thou/uL (0.8-5.3); ABSOLUTE MONOCYTES 0.9 thou/uL (0.0-1.2); ABSOLUTE NEUTROPHILS 6.4 thou/uL (1.6-8.1); BASOPHILS 0.2 %; HEMOGLOBIN 11.8 gm/dL (14.0-18.0); LYMPHOCYTES 12.5 %; MCHC 33.8 g/dL (28.0-37.0); MCV 88.8 fL (80.0-100.0); MONOCYTES 10.2 %; MPV 9.3 fl. (7.2-11.1); NUCLEATED RBCS 0 /100WBC; PLATELET COUNT* 127 thou/uL (150-400); POLYS 74.1 %; RBC 3.94 mil/uL (4.50-6.00); RDW-CV 14.4 % (10.5-14.5); WBC 8.6 thou/uL (4.0-11.0)
[2020-02-12 21:18] LABS: CALCIUM 8.3 mg/dL (8.5-10.1); CREATININE 1.5 mg/dL (0.6-1.3); POTASSIUM 5.7 mmol/L (3.5-5.1)
[2020-02-12 21:19] LABS: APTT 29.2 Seconds (25.0-31.3); INR 1.2; PROTIME 12.7 Seconds (9.20-11.50)
[2020-02-12 21:30] LABS: ALBUMIN 3.7 g/dL (3.4-5.0); CK-MB MASS 7.1 ng/mL (<0.5-3.6); MAGNESIUM 2.1 mg/dL (1.8-2.4); TOTAL BILIRUBIN 0.8 mg/dL (<0.1-1.0); TOTAL PROTEIN 6.8 g/dL (6.4-8.2)
[2020-02-12 23:15] VITALS: BP 122/74
[2020-02-12 23:44] VITALS: BP 136/76
[2020-02-13 03:55] VITALS: BP 116/75
--- NOTE | 2020-02-13 04:26 | NUR ---
ASSUMED CARE OF PT AT 2330 FROM THE ER. PT IS CONFUSED AND LETHARGIC. UNABLE TO ANSWER MOST QUESTIONS OF ADMISSION. VSS. PERRLA. PT IS INCONTINANT. PT IS IN AFIB ON THE TELEMETRY. PT IS RESTING COMFORTABLY IN BED. RESPIRATIONS ARE EVEN ND NONLABORED. WILL CONTINUE TO MONITOR PT.
[2020-02-13 08:00] VITALS: BP 114/68
[2020-02-13 08:43] LABS: CALCIUM 8.3 mg/dL (8.5-10.1); CREATININE 1.5 mg/dL (0.6-1.3); MAGNESIUM 1.9 mg/dL (1.8-2.4)
[2020-02-13 08:44] LABS: POTASSIUM 4.4 mmol/L (3.5-5.1)
[2020-02-13 12:00] VITALS: BP 100/69
--- NOTE | 2020-02-13 14:15 | EKG ---
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: [place] : 1930 Requested By: Chris Marc Order Number: [id number] MD: Neeraj Hernandez Measurements Intervals [place] Rate: 101 P: HI: QRS: -27 QRSD: 93 T: 31 QT: 383 QTc: 497 Interpretive Statements Atrial fibrillation Borderline left axis deviation Low voltage, precordial leads Minimal ST depression Borderline prolonged QT interval Compared to ECG 02/08/2020 15:38:52 Ventricular-paced complex(es) no longer present Electronically Signed On 02-13-2020 14:15:32 CDT by Neeraj Hernandez [email or web address] <ELECTRONICALLY SIGNED> By: Neeraj Hernandez MD, [facility] 02/13/20 1415 39 39 Neeraj Hernandez MD, [facility] /EPI
[2020-02-13 16:00] VITALS: BP 93/75
--- NOTE | 2020-02-13 18:20 | NUR ---
PATINET RESTING IN BED. UP WITH ASSISTX1. AOX4. THORACENTESIS SCHEDULED FOR TOMORROW. DENIES PAIN. VSS. AFIB ON MONITOR.
--- NOTE | 2020-02-13 18:22 | NUR ---
PATIENT RESTING IN BED. UP WITH ASSISTX1. DIALYSIS SCHEDULED FOR TOMORROW PER DR SENIOR. VSS. FLORENTIN HAD A BOUT OF NAUSEA ADN UPSET STOMACH TODAY, TREATED WITH ORAL MMEDICATIONS. VSS. PATIENT WAS ABLE TO AMBULASTE TO THE BATHROM TODAY WITH MINIMAL ASSISTANCE. AOX4.
[2020-02-13 21:00] VITALS: BP 106/67
[2020-02-14] VITALS: BP 132/82
[2020-02-14 04:00] VITALS: BP 128/79
--- NOTE | 2020-02-14 05:04 | NUR ---
No acute event this shift. Pt denies pain. O2 supplement titrated to 1L, sat at upper 90's. Still Afib/paced on tele. Fluid restriction maintained. Pt for thoracentesis. Safety precaution, call light within reach. Will continue to monitor.
[2020-02-14 05:31] LABS: ALBUMIN 3.6 g/dL (3.4-5.0); CALCIUM 8.3 mg/dL (8.5-10.1); CREATININE 1.7 mg/dL (0.6-1.3); MAGNESIUM 2.1 mg/dL (1.8-2.4); POTASSIUM 4.7 mmol/L (3.5-5.1); TOTAL BILIRUBIN 0.6 mg/dL (<0.1-1.0); TOTAL PROTEIN 6.6 g/dL (6.4-8.2)
[2020-02-14 08:00] VITALS: BP 126/70
[2020-02-14 12:31] VITALS: BP 95/62
[2020-02-14 13:06] LABS: BF LYMPHOCYTES 70 %; BF MONOCYTES 25 %; BF POLYS 5 %
[2020-02-14 13:07] LABS: CLARITY SLIGHTLY HAZY; SOURCE PLEURAL FLUID; TOTAL VOLUME 1160 ml
[2020-02-14 13:36] LABS: BF RBC 509 /mm3; TOTAL CELL COUNT 429 /mm3
--- NOTE | 2020-02-14 14:36 | NUR ---
IV discontinued. Reviewed dismissal paperwork with patient who verbalizes understanding. Pt remains alert, oriented and cooperative. No c/o pain or distress. To exit via wheelchair. Assisted to family car. Pt spouse will transport him from facility
--- NOTE | 2020-02-14 15:26 | NUR ---
CM spoke with Pt and Son in law in room. Pt normally resides at home alone, but has recently being staying with his dtr and KALIE, plan is for Pt to return to dtr's home at mt. Pt is independent with ADLs, dtr completes IADLs. Pt has a walker and cane for mobility. Per KALIE, this is Pt's 3rd hospital stay in 2 weeks. Hx of HH. Hx of skilled at [facility]. Pt want to be tested for home o2 at mt, ex ox to be completed if needed. Pt in agreement with using [employer] at mt, as this is the that is in network with his insurance. [employer] p:[phone] f:[phone]
[2020-02-14 17:09] VITALS: BP 109/74
--- NOTE | 2020-02-14 17:53 | NUR ---
PATIENT RESTING IN BED. UP WITH STANDBY ASSIST A CANE. AOX4. URINAL USAGE. IV LASIX. THORACENTESIS PERFROMED TODAY WITH SPECIMEN SENT TO LAB. HOURLY ROUNDING COMPLETED FOR PATIENT SAFETY
[2020-02-14 20:40] VITALS: BP 96/65
[2020-02-15] VITALS: BP 121/77
[2020-02-15 04:00] VITALS: BP 109/77
[2020-02-15 05:13] LABS: CALCIUM 7.9 mg/dL (8.5-10.1); CREATININE 1.7 mg/dL (0.6-1.3); MAGNESIUM 2.1 mg/dL (1.8-2.4); POTASSIUM 4.1 mmol/L (3.5-5.1)
[2020-02-15 08:00] VITALS: BP 102/69
--- NOTE | 2020-02-15 08:38 | NUR ---
PATIENT HAS RESTED OFF AND ON DURING THE NIGHT. VSS ON 1L 02 VIA NASAL CANNULA. MEDICATIONS GIVEN ORDERED AND CHARTED. PATIENT UP WITH SBA WITH CANE TO CHAIR. PATIENT HAS REMAINED ON FLUID RESTRICTION. PATIENT A-FIB ON TELE MONITOR. IV IN RIGHT WRIST-SL. PATIENT INSTRUCTED TO USE CALL LIGHT WHEN NEEDING ASSISTANCE. HOURLY ROUNDS MADE. WILL CONTINUE WITH PLAN OF CARE AND NURSING TO MONITOR.
[2020-02-15 12:00] VITALS: BP 87/57
--- NOTE | 2020-02-15 12:26 | NUR ---
Anticipate that Pt will be medically stable to dc to home tomorrow with [facility]. Pt to have ex ox prior to dc to determine if he will need home o2. Following.
--- NOTE | 2020-02-15 14:44 | CON ---
[address] [address] CONSULTATION Name: HUGO KAUFFMAN Room: [address] IN .R.#: [id number] Admission: 02/12/20 Attend Phys: Girish Horta Discharge: Date of : 30 Report #: [id number] THIS REPORT FOR: //name// cc: Bulmaro Ruelas MD, Karmel MD ~ THIS REPORT FOR: //name// CC: Neeraj Foss DATE OF SERVICE: 02/13/2020 CARDIOLOGY CONSULTATION HISTORY OF PRESENT ILLNESS: The patient is an 89-year-old single white male whom I was asked to see in the hospital today after he complained of being short of breath. The patient has an extensive past medical history. He actually presented in 2007 with chest pain. I performed balloon angioplasty of the diagonal branch of the LAD, but did not place a stent because of small size of the vessel. He presented in 2009 with chest pain. Repeat cardiac catheterization showed normal left ventricular function, no restenosis of the diagonal branch, the right coronary artery has 70% stenosis. I placed a bare metal stent. He was placed on Plavix. His last nuclear stress test in 2012 showed no ischemia with an ejection fraction of 59%. He is not very active because of his advanced age. He presented in 2017 with high degree AV block. I placed a permanent pacemaker. He also had episode of atrial fibrillation, had to be cardioverted. He was discharged on Xarelto in 2018. The patient was admitted here this summer with diastolic heart failure and effusion. He was diuresed at that time. The patient was seen by my partner, Dr. Berny Payne. He was actually just admitted here 3 days ago with shortness of breath. He was diuresed and given antibiotics and sent home. He was brought back to the Emergency Room 2 days later by his daughter complaining he was short of breath. He denied any fever, cough, or chest pain. Cardiology consultation was requested. PAST MEDICAL HISTORY: Significant for cataract extraction, hypertension, hyperlipidemia, dementia. FAMILY HISTORY: Negative for heart disease. SOCIAL HISTORY: He is , lives with daughter. Quit smoking in the past. No alcohol abuse. 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 His daughter is actually a laboratory phlebotomist here at [place], works night shifts. REVIEW OF SYSTEMS: No history of stroke, asthma, peptic ulcer disease, [place] [address] CONSULTATION Name: HUGO KAUFFMAN Room: [address] IN [facility]#: [id number] Admission: 02/12/20 Attend Phys: Girish Horta Discharge: Date of : 30 Report #: [id number] disease, kidney disease, psychiatric illness or chronic skin condition. CURRENT MEDICATIONS: Consist of carvedilol, Synthroid, lisinopril, Protonix, Xarelto, Aricept, Plavix. ALLERGIES: He has no known drug allergies. PHYSICAL EXAMINATION: GENERAL: Revealed an elderly, frail-appearing male, lying in bed. He appeared in no distress. VITAL SIGNS: Blood pressure 110/60, pulse is 100. He is afebrile. HEENT: He was anicteric. Conjunctivae pink. Mucous membranes moist. NECK: Veins do not appear distended. CHEST: Revealed decreased breath sounds at the bases. CARDIAC: Regular, tachycardia. ABDOMEN: Soft. EXTREMITIES: Had trace edema. SKIN: Cool and dry. NEUROLOGIC: He is very slow moving. DIAGNOSTIC DATA: His ECG shows atrial fibrillation with an increased ventricular response rate. His echocardiogram done last week showed an ejection fraction of 55%, left ventricular hypertrophy, biatrial enlargement, aortic sclerosis, mild mitral regurgitation. He had a nuclear stress test in 2018 that showed ejection fraction of 64% with no evidence of ischemia. His x-rays, he had portable chest x-ray done yesterday which showed cardiomegaly, pacemaker in place. There was mild interstitial infiltrates consistent with edema. He had a CT scan of the chest using a PE protocol, showed cardiomegaly, pleural effusions. LABORATORY DATA: He had a thoracentesis done last week. Sodium 131, potassium 4.4, BUN 33, creatinine 1.5. BNP 4851. TSH 3.1. His white blood cell count 8.6, hemoglobin 11.8. IMPRESSION AND RECOMMENDATIONS: 1. Acute diastolic heart failure. The patient is on a beta carri and ROBER inhibitor. We would recommend Lasix. 2. Previous pacemaker insertion. 3. Atrial fibrillation. Rate controlled with beta-carri. I would continue anticoagulation with Xarelto. 4. Coronary artery disease with previous stenting. [place] [address] CONSULTATION Name: HUGO KAUFFMAN Room: [address] IN M.R.#: [id number] Admission: 02/12/20 Attend Phys: Girish Horta Discharge: Date of : 30 Report #: [id number] 5. Hyperlipidemia. The patient is on a statin drug. 6. Dementia. I would establish code status. <ELECTRONICALLY SIGNED> By: Neeraj Hernandez MD, FACC 02/15/20 1444 1053 [id number] Hernandez MD, FACC /nt
[2020-02-15 16:00] VITALS: BP 80/41
--- NOTE | 2020-02-15 18:45 | NUR ---
pt. aox4, bp low but stable, denies pain, stable afib on monitor. call light and personal belongings placed within reach. pt oob to chair, tolerated without difficulty. pt. in bed, wathcing tv, in no apparent distress, at time of shift change.
[2020-02-15 19:50] VITALS: BP 91/53
[2020-02-16 04:41] VITALS: BP 116/70
[2020-02-16 05:24] LABS: CALCIUM 8.2 mg/dL (8.5-10.1); CREATININE 1.6 mg/dL (0.6-1.3); POTASSIUM 4.1 mmol/L (3.5-5.1)
--- NOTE | 2020-02-16 07:48 | NUR ---
PT CARE ASSUMED AT 1930. SAT MAINTAINED IN RA. ALERT AND ORIENTED X4 BUT FORGETFUL. DENIES PAIN AND SOB. CALL LIGHT WITHIN REACH AND BED IN LOW POSITION. HOURLY ROUNDING DONE FOR PT SAFETY.
[2020-02-16 08:00] VITALS: BP 107/81
[2020-02-16] MEDS ORDERED: ELIQUIS2.5 MG PO (09:37)
[2020-02-16] MEDS ORDERED: LASIX 40 MG TAB40 M1 PO (09:37)
[2020-02-16] MEDS ORDERED: XARELTO15 MG PO (10:12)
--- NOTE | 2020-02-16 10:39 | NUR ---
Pt discharging to dtr's home today, faxed HH orders to [facility]. Pt does not need home o2 at dc. Family to transport.
[2020-02-16 12:02] VITALS: BP 82/55
[2020-02-16 13:08] LABS: BODY FLUID LDH 158 IU/L (()); BODY FLUID PROTEIN 1.8 g/dL (())
--- NOTE | 2020-02-16 13:55 | NUR ---
Pt. aox4, bp low but stable, chronic aflib, denies pain. call light and personal belongings placed within reach. pt. d/pa to home. d/c summary, script, xarelto samples and carenotes provided to pt. and explained to pt. and daughter. iv d/pa without complications. pt. left unit by w/c, with personal belongings and picked up by daughte by car. pt in stable condition at time of discharge.
--- NOTE | 2020-02-16 15:07 | PATH ---
[address] [address] PATHOLOGY RPT PROCEDURE Name: HUGO VAUGHAN Room: [address] IN [facility]#: [id number] Admission: 02/12/20 Date of : 30 Discharge: 02/16/20 Report #: [id number] Path Case #: [id number] Note [facility] Accession Number: [id number] TESTS RESULT FLAG UNITS REF RANGE LAB Clinician Provided Cytology Information No. of containers..01 Other (Miscellaneous) Source: 01 R. PLEURAL DIAGNOSIS: 02 R. PLEURAL NEGATIVE FOR MALIGNANT CELLS. REACTIVE MESOTHELIAL CELLS AND FEW, PREDOMINANTLY CHRONIC INFLAMMATORY CELLS. THIS INTERPRETATION INCLUDES EVALUATION OF A CELL BLOCK. Signed out by: 02 Giovani Chávez MD, Pathologist NPI- [id number] Performed by: Rashaad Vaughan, Washroom Operator ([facility]) Gross description: 01 90 ML, CLDY YELLOW, 1 TP 1 CB /LCS 02/15/2020 0815 Local FLAG LEGEND: L-Low Normal,H-High Normal,LL-Alert Low,HH-Alert High <-Panic Low,>-Panic High,A-Abnormal,AA-Critical Abnormal Performed at: [address] [place] [address] Jesus Randhawa MD, [address] [place] [address] [address] [facility], [place] [address] Giovani Chávez MD, Specimen Comment: A courtesy copy of this report has been sent to [phone], [phone] Specimen Comment: [phone], Specimen Comment: Report sent to DR BEARD,DR LOPEZ / DR MATOS Specimen Comment: DR THAKKAR Specimen Comment: A duplicate report has been generated due to demographic updates. Performed at: [address], [place], [place] [id number] MD Jesus Randhawa MD Phone: [phone]
[2020-02-17 02:06] LABS: BODY FLUID PH 7.7 (Not Estab.)
[2020-02-17 09:53] LABS: SOURCE PLEURAL
== END 2020-02-16 15:01 | disposition home health service (06) | DRG 291 ==
LOC: M.ERS 20:33 → M.2W 21:53 → M.TBA-ER 21:53 → M.2W 22:39
PROVIDERS: Family Medicine; Internal Medicine; Internal Medicine Cardiovascular Disease; ADMIT Internal Medicine; ATTEND Internal Medicine
PROC: 0W9930Z Drainage of Right Pleural Cavity with Drainage Device, Percutaneous Approach (ICD-10-PCS; principal; 2020-02-14)
DX: I13.0 Hypertensive heart and chronic kidney disease with heart failure and stage 1 through stage 4 chronic kidney disease, or unspecified chronic kidney disease (principal); I50.33 Acute on chronic diastolic (congestive) heart failure; J96.00 Acute respiratory failure, unspecified whether with hypoxia or hypercapnia; E87.1 Hypo-osmolality and hyponatremia; J91.8 Pleural effusion in other conditions classified elsewhere; N18.3 Chronic kidney disease, stage 3 (moderate); E78.5 Hyperlipidemia, unspecified; I27.20 Pulmonary hypertension, unspecified; I49.5 Sick sinus syndrome; F03.90 Unspecified dementia, unspecified severity, without behavioral disturbance, psychotic disturbance, mood disturbance, and anxiety; E87.5 Hyperkalemia; I25.10 Atherosclerotic heart disease of native coronary artery without angina pectoris; I34.0 Nonrheumatic mitral (valve) insufficiency; Z96.1 Presence of intraocular lens; Z20.828 Contact with and (suspected) exposure to other viral communicable diseases; Z95.5 Presence of coronary angioplasty implant and graft; Z95.0 Presence of cardiac pacemaker; Z98.42 Cataract extraction status, left eye; Z98.41 Cataract extraction status, right eye; Z79.01 Long term (current) use of anticoagulants; Z79.899 Other long term (current) drug therapy; Z87.891 Personal history of nicotine dependence; Z87.01 Personal history of pneumonia (recurrent)